=== PATIENT | female | born 1960 | race Caucasian/White ===

== ENCOUNTER 2018-08-20 16:57 | Emergency (ER) | payer OTHER ==
[~2018-08-20] VITALS: Ht 167.6 cm; Wt 74.8 kg
[2018-08-20 17:05] VITALS: BP 136/85
--- NOTE | 2018-08-20 17:05 | NUR ---
PATIENT BIB EMS TO ER BED 11.
--- NOTE | 2018-08-20 17:10 | NUR ---
PT FROM [facility] FOR HYPERGLYCEMIA, 449 ON TRIAGE. PT ALSO REPORTS ETOH AND SHARP CP FOR ONE HOUR. DENIES N/V/D; SKIN IS PINK/WARM/DRY; AAOX3 WITH EVEN AND STEADY GAIT; LUNGS CLEAR BL; HR EVEN AND REGULAR; PT DENIES ANY FEVER, SOB, OR COUGH AT THIS TIME; PATIENT STATES CHEST PAIN OF 8/10 AT THIS TIME; VSS; PATIENT POSITIONED FOR COMFORT; HOB ELEVATED; BEDRAILS UP X2; BED DOWN. ER MD MADE AWARE OF PT STATUS.
--- NOTE | 2018-08-20 17:41 | NUR ---
Dr. Aburto evaluating patient at bedside.
[2018-08-20 17:42] LABS: BASOPHILS % (AUTO) 0.6 % (0.0-2.0); EOSINOPHILS # (AUTO) 0.2 K/uL (0-0.4); EOSINOPHILS % (AUTO) 2.5 % (0.0-4.0); HEMATOCRIT 37.7 % (36-48); HEMOGLOBIN 12.6 g/dL (12.0-16.0); LYMPHOCYTES # (AUTO) 1.6 K/uL (2.5-16.5); LYMPHOCYTES % (AUTO) 24.3 % (20.5-51.1); MEAN CORPUSCULAR HEMOGLOBIN 30 pg (27-31); MEAN CORPUSCULAR HGB CONC 34 g/dL (33-37); MEAN CORPUSCULAR VOLUME 90.5 fL (80-94); MONOCYTES # (AUTO) 0.6 K/uL (0.8-1.0); MONOCYTES % (AUTO) 8.8 % (1.7-9.3); NEUTROPHILS # (AUTO) 4.2 K/uL (1.8-7.7); NEUTROPHILS % (AUTO) 63.8 % (42.2-75.2); PLATELET COUNT (AUTO) 166 K/uL (140-450); RED BLOOD CELL COUNT(AUTO) 4.17 MIL/uL (4.20-5.40); RED CELL DISTRIBUTION WIDTH 13.2 % (11.6-13.7); WHITE BLOOD COUNT (AUTO) 6.6 K/uL (4.8-10.8)
[2018-08-20 17:43] LABS: APPEARANCE,URINE CLEAR (CLEAR); BILIRUBIN,URINE NEGATIVE (NEGATIVE); BLOOD, URINE NEGATIVE (NEGATIVE); COLOR,URINE YELLOW (YELLOW); LEUKOCYTE ESTERASE ,URINE NEGATIVE (NEGATIVE); NITRITE, URINE POSITIVE (NEGATIVE); UGLUCOSE 3+ (NEGATIVE)
[2018-08-20 17:47] LABS: RBC,URINE 0 /HPF (0-5)
[2018-08-20] MEDS ORDERED: NACL 0.9% 1,500 ML IV SCH (17:51)
[2018-08-20 17:52] LABS: ANION GAP 10.1 (8-16); CARBON DIOXIDE 27.1 mmol/L (21-32); CREATININE 1.1 mg/dL (0.6-1.3); POTASSIUM 4.2 mmol/L (3.5-5.1)
[2018-08-20] MEDS ORDERED: INSULIN REGULAR, HUMAN 100 UNIT/ML VIAL IV ONE (17:55)
[2018-08-20] MEDS ORDERED: THIAMINE 200 MG/2 ML VIAL IM ONE (17:55)
[2018-08-20 17:57] LABS: ALBUMIN 3.8 g/dL (3.4-5.0); TOTAL BILIRUBIN 0.4 mg/dL (0.0-1.0)
[2018-08-20] MEDS ORDERED: ICOS1SGL PO (17:57)
[2018-08-20] MEDS ORDERED: METO25TA PO (17:57)
[2018-08-20] MEDS ORDERED: CLOP75TA55 PO (17:57)
[2018-08-20] MEDS ORDERED: ISOS30TE34 PO (17:57)
[2018-08-20] MEDS ORDERED: DETLA4 PO (17:57)
[2018-08-20] MEDS ORDERED: LISI-420 PO (17:57)
[2018-08-20] MEDS ORDERED: ASPI-1718 PO (17:57)
[2018-08-20] MEDS ORDERED: GABA300C PO (17:57)
[2018-08-20] MEDS ORDERED: INSU100S22 SUBQ (17:57)
[2018-08-20] MEDS ORDERED: RANEX500 PO (17:57)
[2018-08-20] MEDS ORDERED: HUM SUBQ (17:57)
[2018-08-20] MEDS ORDERED: TRI48 PO (17:57)
[2018-08-20] MEDS ORDERED: CETI10TA71 PO (17:57)
[2018-08-20] MEDS ORDERED: ATOR40TA PO (17:57)
[2018-08-20] MEDS ORDERED: MIRABULK PO (17:57)
--- NOTE | 2018-08-20 18:01 | NUR ---
agricultural technical officer at bedside.
--- NOTE | 2018-08-20 18:10 | NUR ---
PT BLOOD GLUCOSE IS 325. MADE AWARE.
[2018-08-20] MEDS ORDERED: INSULIN REGULAR, HUMAN 100 UNIT/ML VIAL IVP ONE (18:40)
[2018-08-20] MEDS ORDERED: LEVOFLOXACIN 500 MG TAB PO ONE (18:50)
--- NOTE | 2018-08-20 19:04 | NUR ---
Patient discharged with v/s stable. Written and verbal after care instructions given and explained. Patient alert, oriented and verbalized understanding of instructions. Ambulance Transport with to senior living. All questions addressed prior to discharge. ID band removed. Patient advised to follow up with PMD. Rx of levaquin given. Patient educated on indication of medication including possible reaction and side effects. Opportunity to ask questions provided and answered. ---online community manager working on arranging transport for pt to return home dc instructions given to pt
[2018-08-20 19:11] VITALS: BP 111/57
--- NOTE | 2018-08-20 19:33 | NUR ---
PT AWAITING AMBULANCE TRANSPORT TO FACILITY. INFORMED PT OF D/C PLAN. NO NEW QUESTIONS OR CONCERNS.
[2018-08-20 20:16] LABS: ACETONE, SERUM NEGATIVE (NEGATIVE)
[2018-08-20 20:20] LABS: MAGNESIUM 1.9 mg/dL (1.8-2.4)
--- NOTE | 2018-08-22 13:50 | NUR ---
positive e coli in urine-- reviewed chart pt received levaquin during ER visit. appropriate treatment given
== END 2018-08-20 19:35 | disposition home or self-care (01) ==
LOC: MED 16:57
DX: E11.65 Type 2 diabetes mellitus with hyperglycemia (principal); N39.0 Urinary tract infection, site not specified; E11.40 Type 2 diabetes mellitus with diabetic neuropathy, unspecified; Z86.73 Personal history of transient ischemic attack (TIA), and cerebral infarction without residual deficits; Z98.890 Other specified postprocedural states; Z79.84 Long term (current) use of oral hypoglycemic drugs; Z79.01 Long term (current) use of anticoagulants; Z79.4 Long term (current) use of insulin; Z79.899 Other long term (current) drug therapy; Z88.0 Allergy status to penicillin
CPT/HCPCS: 36415; 36600; 71045; 80053; 81001; 82009; 82803; 82948; 83036; 83605; 83735; 84484; 85025; 87086; 87186; 93005; 96361; 96372; 96374; 99284; J1815; J3411; J7030; Q0092

== ENCOUNTER 2018-08-26 03:23 | Emergency (ER) | payer OTHER, MEDICAID ==
[~2018-08-26] VITALS: Ht 170.2 cm; Wt 95.3 kg
[~2018-08-26 03:23] MED LIST: ASPI-1718 PO; ATOR40TA PO; CETI10TA71 PO; CLOP75TA55 PO; DETLA4 PO; GABA300C PO; HUM SUBQ; ICOS1SGL PO; INSU100S22 SUBQ; ISOS30TE34 PO; LISI-420 PO; METO25TA PO; MIRABULK PO; RANEX500 PO; TRI48 PO
--- NOTE | 2018-08-26 03:24 | NUR ---
PT NAI AMBULANCE FROM [facility], TAKEN TO ER BED 7
[2018-08-26 03:28] VITALS: BP 150/70
--- NOTE | 2018-08-26 03:30 | NUR ---
58 Y/O F ADELAIDAA, FROM [facility], WITH C/O HIGH BLOOD SUGAR AND BILATERAL TOE PAIN. 5/10 PAIN. PT AAOX4. SPEECH CLEAR. 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 SKIN NORMAL PER ETHINICITY, WARM AND DRY TO TOUCH. VSS. BEDRAILS X2 UP. HOB ELEVATED FOR COMFORT. WILL CONTINUE TO MONITOR. -BLOOD SUGAR 422. DR BECKFORD MADE AWARE.
[2018-08-26 03:36] VITALS: BP 150/70
[2018-08-26] MEDS ORDERED: NACL 0.9% 1,000 ML IV ONE (03:40)
--- NOTE | 2018-08-26 03:45 | NUR ---
DR. BECKFORD BEDSIDE EVALUATING PT
[2018-08-26 04:07] LABS: BASOPHILS # (AUTO) 0.1 K/uL (0.00-0.22); BASOPHILS % (AUTO) 1.5 % (0.0-2.0); EOSINOPHILS # (AUTO) 0.1 K/uL (0-0.4); EOSINOPHILS % (AUTO) 2.7 % (0.0-4.0); HEMATOCRIT 35.8 % (36-48); HEMOGLOBIN 12.3 g/dL (12.0-16.0); LYMPHOCYTES # (AUTO) 1.3 K/uL (2.5-16.5); LYMPHOCYTES % (AUTO) 27.9 % (20.5-51.1); MEAN CORPUSCULAR HEMOGLOBIN 31 pg (27-31); MEAN CORPUSCULAR HGB CONC 34 g/dL (33-37); MEAN CORPUSCULAR VOLUME 90.4 fL (80-94); MONOCYTES # (AUTO) 0.4 K/uL (0.8-1.0); MONOCYTES % (AUTO) 8.9 % (1.7-9.3); NEUTROPHILS # (AUTO) 2.8 K/uL (1.8-7.7); PLATELET COUNT (AUTO) 129 K/uL (140-450); RED BLOOD CELL COUNT(AUTO) 3.96 MIL/uL (4.20-5.40); RED CELL DISTRIBUTION WIDTH 13.2 % (11.6-13.7); WHITE BLOOD COUNT (AUTO) 4.8 K/uL (4.8-10.8)
[2018-08-26 04:18] LABS: ANION GAP 12.7 (8-16); CARBON DIOXIDE 27.3 mmol/L (21-32); CREATININE 1.1 mg/dL (0.6-1.3)
[2018-08-26] MEDS ORDERED: INSULIN REGULAR, HUMAN 100 UNIT/ML VIAL IV ONE (04:25)
--- NOTE | 2018-08-28 11:35 | NUR ---
Late entry. Confirmed with RN that 1000 ml 0.9 NS IV ended at 0455.
== END 2018-08-26 05:07 ==
LOC: MED 03:23
DX: E11.65 Type 2 diabetes mellitus with hyperglycemia (principal); M79.671 Pain in right foot; N39.0 Urinary tract infection, site not specified; E11.40 Type 2 diabetes mellitus with diabetic neuropathy, unspecified; Z79.4 Long term (current) use of insulin; Z86.73 Personal history of transient ischemic attack (TIA), and cerebral infarction without residual deficits; I10 Essential (primary) hypertension; Z79.82 Long term (current) use of aspirin; Z79.899 Other long term (current) drug therapy; Z88.0 Allergy status to penicillin
CPT/HCPCS: 36415; 80048; 81002; 82948; 85025; 96361; 96374; 99283; J1815; J7030

== ENCOUNTER 2018-08-30 07:00 | Inpatient (IN) | payer OTHER, MEDICAID ==
[~2018-08-30] VITALS: Ht 157.5 cm; Wt 91.6 kg
[2018-08-30 07:00] VITALS: BP 122/64
--- NOTE | 2018-08-30 07:20 | NUR ---
58/F NAI FROM [facility] FOR ELEVATED BLOOD GLUCOSE, OVER 600 THIS AM. WAS GIVEN INSULIN 45 MINS AGO. BLOOD GLUCOSE 496 AT THIS TIME. PT HAS HAD UTI X2 WEEKS. ALSO REPORTS RLE NEUROPATHY PAIN. MED HX: HTN, DM, RIDE SIDED STROKE (2019), CARDIAC STENTS, EYE SURGERY. PATIENT POSITIONED FOR COMFORT; HOB ELEVATED; BEDRAILS UP X2; BED DOWN. ER MD MADE AWARE OF PT STATUS.
--- NOTE | 2018-08-30 07:30 | NUR ---
SPOKE TO PT'S SON; [phone]
--- NOTE | 2018-08-30 07:31 | NUR ---
Patient being evaluated by DR ROMAN at bedside.
[2018-08-30] MEDS ORDERED: NACL 0.9% 1,000 ML IV ONE (07:40)
--- NOTE | 2018-08-30 07:51 | NUR ---
LAB AT BEDSIDE.
--- NOTE | 2018-08-30 07:52 | NUR ---
X RAY AT BEDSIDE.
[2018-08-30 08:07] LABS: BASOPHILS # (AUTO) 0.1 K/uL (0.00-0.22); BASOPHILS % (AUTO) 0.8 % (0.0-2.0); EOSINOPHILS # (AUTO) 0.1 K/uL (0-0.4); HEMOGLOBIN 13.6 g/dL (12.0-16.0); LYMPHOCYTES # (AUTO) 1.8 K/uL (2.5-16.5); LYMPHOCYTES % (AUTO) 27.6 % (20.5-51.1); MEAN CORPUSCULAR HEMOGLOBIN 31 pg (27-31); MEAN CORPUSCULAR HGB CONC 34 g/dL (33-37); MEAN CORPUSCULAR VOLUME 90.2 fL (80-94); MONOCYTES # (AUTO) 0.6 K/uL (0.8-1.0); MONOCYTES % (AUTO) 8.8 % (1.7-9.3); NEUTROPHILS # (AUTO) 3.9 K/uL (1.8-7.7); NEUTROPHILS % (AUTO) 60.8 % (42.2-75.2); PLATELET COUNT (AUTO) 165 K/uL (140-450); RED BLOOD CELL COUNT(AUTO) 4.44 MIL/uL (4.20-5.40); RED CELL DISTRIBUTION WIDTH 13.4 % (11.6-13.7); WHITE BLOOD COUNT (AUTO) 6.5 K/uL (4.8-10.8)
[2018-08-30 08:11] LABS: APPEARANCE,URINE CLEAR (CLEAR); BILIRUBIN,URINE NEGATIVE (NEGATIVE); BLOOD, URINE 2+ (NEGATIVE); COLOR,URINE YELLOW (YELLOW); LEUKOCYTE ESTERASE ,URINE NEGATIVE (NEGATIVE); NITRITE, URINE NEGATIVE (NEGATIVE); PH,URINE 5.5 (5.0-9.0); UGLUCOSE 3+ (NEGATIVE)
--- NOTE | 2018-08-30 08:30 | NUR ---
FOOD TRAY PROVIDED PATIENT AT THIS TIME.
--- NOTE | 2018-08-30 08:30 | NUR ---
Beka hannah in [facility] - 08/30/18 at 0834 by MED1 FOOD TRATariq PROVIDE PATIENT AT THIS TIME.
[2018-08-30 08:32] LABS: ALBUMIN 4.2 g/dL (3.4-5.0); ANION GAP 12.8 (8-16); ASPARTATE AMINOTRANSFERASE 18 U/L (15-37); CARBON DIOXIDE 26.1 mmol/L (21-32); CHLORIDE 99 mmol/L (98-107); CREATININE 1.1 mg/dL (0.6-1.3); GFR ARICAN-AMERICAN 66 mL/min (>90); POTASSIUM 3.9 mmol/L (3.5-5.1); SODIUM SERUM 134 mmol/L (136-145); TOTAL BILIRUBIN 0.7 mg/dL (0.0-1.0); UREA NITROGEN, BLOOD 26 mg/dL (7-18)
[2018-08-30 08:37] LABS: GLUCOSE 450 mg/dL (74-106)
--- NOTE | 2018-08-30 08:44 | NUR ---
ATE 100% OF FOOD .DENIES N/V.
[2018-08-30 08:49] LABS: ACETONE, SERUM NEGATIVE (NEGATIVE)
[2018-08-30] MEDS ORDERED: INSULIN REGULAR, HUMAN 100 UNIT/ML VIAL SUBQ ONE (09:00)
--- NOTE | 2018-08-30 09:30 | NUR ---
Patient appears to be resting comfortably in bed. Vital Signs within normal limits. Respirations even and unlabored.WILL CONTUNUE TO MONITOR.
[2018-08-30] MEDS ORDERED: ONDANSETRON 4 MG/2 ML VIAL IM/IVP PRN (09:50)
[2018-08-30] MEDS ORDERED: MORPHINE SULFATE 2 MG/ML SYR IVP PRN (09:50)
[2018-08-30] MEDS ORDERED: ACETAMINOPHEN 325 MG TAB PO PRN (09:50)
[2018-08-30] MEDS ORDERED: DOCUSATE SODIUM 100 MG GELCAP PO PRN (09:50)
[2018-08-30 10:10] LABS: WBC,URINE 0-5 /HPF (0-5); YEAST,URINE Rare /HPF (None Seen)
--- NOTE | 2018-08-30 10:27 | NUR ---
PT TAKEN TO CT VIA GUSTAN, ACCOMPANIED BY CODING CLERKS SUPERVISOR.
--- NOTE | 2018-08-30 10:27 | NUR ---
Beka hannah in ED - 08/30/18 at 1032 by MED1 PT BRYON TO CT VIA BENJI, ACCOMPANIED BY CLIPPER AND TURNER.
--- NOTE | 2018-08-30 10:32 | NUR ---
PT RETURNED FROM CT
[2018-08-30 11:30] LABS: PROTHROMBIN TIME 10.2 secs (10.8-13.4)
[2018-08-30] MEDS ORDERED: BLOOD GLUCOSE MONITORING 1 DEV DEV FS SCH (11:30)
[2018-08-30 11:36] LABS: CHOL/HDL RATIO 4.7 (1-4.5); PHOSPHORUS 3.6 mg/dL (2.5-4.9); THYROID STIMULATING HORMONE 10.64 uIU/mL (0.34-3.74)
--- NOTE | 2018-08-30 11:47 | NUR ---
US AT BEDSIDE
[2018-08-30] MEDS: BLOOD GLUCOSE MONITORING 1 DEV DEV FS SCH ×3 (12:00→23:52)
[2018-08-30] MEDS: INSULIN LISPRO SLIDING SCALE 100 UNITS/ML VIAL SUBQ PRN ×3 (12:27→23:57)
--- NOTE | 2018-08-30 12:45 | NUR ---
FOOD TRAY PROVIDE PATIENT AT THIS TIME.
--- NOTE | 2018-08-30 12:52 | NUR ---
ATE 100% OF FOOD .DENIES N/V.
--- NOTE | 2018-08-30 12:59 | NUR ---
Patient appears to be resting comfortably in bed. Vital Signs within normal limits. Respirations even and unlabored.
[2018-08-30] MEDS: NACL 0.9% 1,000 ML IV SCH ×3 (13:05→23:56)
[2018-08-30] MEDS: GABAPENTIN 300 MG CAP PO SCH ×2 (13:54→17:19)
[2018-08-30 14:37] VITALS: BP 144/73
--- NOTE | 2018-08-30 14:37 | NUR ---
RECEIVED REPORT REGARDING THE PT FROM CHARGE NURSE, TL, PT IS AWAKE AND ALERT AND HAS AN IV LINE ON THE LEFT HAND G. 22 ON SALINE LOCK, VITAL SIGNS TAKEN AND IS STABLE. PT DENIES PAIN AT THIS TIME AND WILL MONITOR PT.
--- NOTE | 2018-08-30 14:46 | NUR ---
Patient will be admitted to care of DR GARSIA. Admited to TELE. Will go to room 119B. Belongings list completed. Report to GEMA JC
[2018-08-30 15:10] LABS: BARBITURATE, URINE NEG. ng/ml (NEG <=200); BENZODIAZEPINE, URINE NEG. ng/mL (NEG <=200); CANNABINOID, URINE NEG. ng/mL (NEG <=50); COCAINE, URINE NEG. ng/mL (NEG <=300); OPIATE, URINE NEG. ng/mL (NEG <=2000); PHENCYCLIDINE SCREEN,URINE NEG. ng/mL (NEG <=25)
[2018-08-30] MEDS: HYDROcodone/APAP 5/325 MG 1 TAB TAB PO PRN (17:19)
--- NOTE | 2018-08-30 17:20 | NUR ---
PT IS AWAKE AND VERBALIZED A PAIN RATE OF 9/10, ORAL AND PAIN MEDICATION WERE GIVEN AND PT TOLERATED IT, WILL RE-ASSESS PAIN IN AN HOUR.
--- NOTE | 2018-08-30 18:44 | NUR ---
PT IS AWAKE AND BLOOD GLUCOSE CHECK DONE AND RSULT IS 407, INFORMED DR. SANTANA AND MADE A VERBAL ORDER TO GIVE 10UNITS OF INSULIN, INSULIN GIVEN ON THE RT UA VIA SUBQ ROUTE ANDS PT TOLERATED IT. WILL MONITOR PT.
--- NOTE | 2018-08-30 19:20 | NUR ---
RECEIVED BEDSIDE REPORT FROM DAY SHIFT NURSE. PATIENT IS AWAKE, ALERT, AND COOPERATIVE. RESPIRATION EVEN UNLABORED ON ROOM AIR. SKIN IS WARM AND DRY. IV PATENT AND INTACT. PLAN OF CARE WAS DISCUSSED. ALL SAFETY MEASURES IN PLACE. BED IS IN LOW POSITION. CALL LIGHT WITHIN REACH AND VERBALIZES ITS USE. WILL CONTINUE TO MONITOR.
--- NOTE | 2018-08-30 19:20 | NUR ---
ENDORSED PT TO CHEMICAL RESEARCH ENGINEER NURSE FOR CONTINUITY OF CARE.
[2018-08-30 20:00] VITALS: BP 131/67
--- NOTE | 2018-08-30 20:00 | NUR ---
INITIAL ASSESSMENT DONE. VITALS WERE TAKEN. PATIENT STATED THAT SHE HAS RIGHT SIDE BLINDNESS. ALL SAFETY MEASURES IN PLACE. WILL CONTINUE TO MONITOR.
[2018-08-30] MEDS: METOPROLOL 25 MG TAB PO SCH (20:27)
[2018-08-30] MEDS: ATORVASTATIN 20 MG TAB PO SCH (20:27)
--- NOTE | 2018-08-30 21:00 | NUR ---
ALL SCHEDULED MEDS WERE GIVEN AND TOLERATED THEM WELL. NO ASE NOTED. PATIENT COMPLAINED OF NAUSEA. PRN ANTIEMETIC ADMINISTERED PER ORDER. WILL CONTINUE TO MONITOR
--- NOTE | 2018-08-30 22:30 | NUR ---
PATIENT SLEEPING RESPIRATION EVEN UNLABORED ON ROOM AIR. NO DISTRESS NOTED. WILL CONTINUE TO MONITOR.
[2018-08-31] VITALS: BP 130/55
--- NOTE | 2018-08-31 | NUR ---
VITALS WERE TAKEN. PATIENT CONDITION STABLE. NO DISTRESS NOTED. WILL CONTINUE TO MONITOR.
[2018-08-31] MEDS: HYDROcodone/APAP 5/325 MG 1 TAB TAB PO PRN ×3 (00:15→20:24)
--- NOTE | 2018-08-31 00:15 | NUR ---
PATIENT COMPLAINED OF RIGHT ARM PAIN 6/10. PRN PAIN MED ADMINISTERED PER ORDER. WILL CONTINUE TO MONITOR.
--- NOTE | 2018-08-31 02:00 | NUR ---
CHECKED PATIENT. PATIENT SLEEPING RESPIRATION EVEN UNLABORED ON ROOM AIR. NO DISTRESS NOTED. WILL CONTINUE TO MONITOR.
[2018-08-31 04:00] VITALS: BP 136/65
--- NOTE | 2018-08-31 04:00 | NUR ---
VITALS WERE TAKEN. PATIENT CONDITION IS STABLE. NO DISTRESS NOTED. WILL CONTINUE TO MONITOR.
[2018-08-31] MEDS: INSULIN LISPRO SLIDING SCALE 100 UNITS/ML VIAL SUBQ PRN ×3 (06:01→17:30)
[2018-08-31] MEDS: BLOOD GLUCOSE MONITORING 1 DEV DEV FS SCH ×3 (06:04→17:29)
[2018-08-31 06:28] LABS: T4 (THYROXINE) 5.5 ug/dL (4.5-12.0)
--- NOTE | 2018-08-31 07:26 | NUR ---
ENDORSED PATIENT TO DAY SHIFT NURSE FOR CONTINUITY OF CARE. PATIENT IS IN STABLE CONDITION.
--- NOTE | 2018-08-31 07:27 | NUR ---
RECEIVED BEDSIDE REPORT FROM JORGE A DE PAZ. PT STABLE, AWAKE, ALERT AND ORIENTED X4. NO SIGNS OF DISTRESS NOTED. DENIES PAIN OR SOB. NO REDNESS, SWELLING, OR INFLAMMATION NOTED ON IV SITE. CALL [place] WITHIN REACH. BED IN LOWEST POSITION, PT AMBULATES TO THE BEDSIDE COMMODE. SAFETY MEASURES IN PLACE. PLAN OF CARE REVIEWED.
[2018-08-31 07:41] LABS: BASOPHILS % (AUTO) 0.3 % (0.0-2.0); EOSINOPHILS # (AUTO) 0.3 K/uL (0-0.4); EOSINOPHILS % (AUTO) 4.9 % (0.0-4.0); HEMOGLOBIN 12.3 g/dL (12.0-16.0); LYMPHOCYTES % (AUTO) 32.3 % (20.5-51.1); MEAN CORPUSCULAR HEMOGLOBIN 31 pg (27-31); MEAN CORPUSCULAR HGB CONC 34 g/dL (33-37); MEAN CORPUSCULAR VOLUME 90.3 fL (80-94); MONOCYTES # (AUTO) 0.5 K/uL (0.8-1.0); MONOCYTES % (AUTO) 7.9 % (1.7-9.3); NEUTROPHILS # (AUTO) 3.3 K/uL (1.8-7.7); NEUTROPHILS % (AUTO) 54.6 % (42.2-75.2); PLATELET COUNT (AUTO) 140 K/uL (140-450); RED BLOOD CELL COUNT(AUTO) 3.98 MIL/uL (4.20-5.40); RED CELL DISTRIBUTION WIDTH 13.3 % (11.6-13.7); WHITE BLOOD COUNT (AUTO) 6.1 K/uL (4.8-10.8)
[2018-08-31 08:00] VITALS: BP 135/90
--- NOTE | 2018-08-31 08:03 | NUR ---
PATIENT HAS BEEN SCREENED AND CATEGORIZED MODERATE NUTRITION RISK. PATIENT WILL BE SEEN WITHIN 3-5 DAYS OF ADMISSION. 09/02/18N[address]
--- NOTE | 2018-08-31 08:15 | NUR ---
PT IS REQUESTING FOR CREAM OF WHEAT INSTEAD OF OATMEAL AND SOME EXTRA CREAMER, CALLED [facility].
[2018-08-31] MEDS ORDERED: INSULIN LANTUS 100 UNITS/ML 10 ML VIAL SUBQ SCH (09:00)
[2018-08-31 09:19] LABS: ANION GAP 14.1 (8-16); CARBON DIOXIDE 25.1 mmol/L (21-32); CREATININE 0.8 mg/dL (0.6-1.3); POTASSIUM 4.2 mmol/L (3.5-5.1)
[2018-08-31] MEDS: TOLTERODINE LA 4 MG CAPER PO SCH (10:26)
[2018-08-31] MEDS: FENOFIBRATE 48 MG TAB PO SCH (10:27)
[2018-08-31] MEDS: LACTOBACILLUS RHAMNOSUS GG 1 EACH CAP PO SCH (10:27)
[2018-08-31] MEDS: METOPROLOL 25 MG TAB PO SCH ×2 (10:27→20:24)
[2018-08-31] MEDS: LISINOPRIL 20 MG TAB PO SCH (10:28)
[2018-08-31] MEDS: ESCITALOPRAM 20 MG TAB PO SCH (10:28)
[2018-08-31] MEDS: ASPIRIN 81 MG TAB.CHEW PO SCH (10:28)
[2018-08-31] MEDS: CLOPIDOGREL 75 MG TAB PO SCH (10:28)
[2018-08-31] MEDS: GABAPENTIN 300 MG CAP PO SCH ×3 (10:29→17:28)
[2018-08-31] MEDS: INSULIN LANTUS 100 UNITS/ML 10 ML VIAL SUBQ SCH (10:35)
[2018-08-31] MEDS: ISOSORBIDE MONONITRATE 30 MG TABER PO SCH (10:38)
--- NOTE | 2018-08-31 10:46 | NUR ---
ADMINISTERED SCHEDULED MEDICATIONS, PT TOLERATED WELL. CHECKED BG, 408, ADMINISTERED SCHEDULED LANTUS. WILL CONTINUE TO MONITOR.
[2018-08-31 11:19] LABS: MAGNESIUM 1.7 mg/dL (1.8-2.4); PHOSPHORUS 3.3 mg/dL (2.5-4.9)
[2018-08-31 12:00] VITALS: BP 131/72
--- NOTE | 2018-08-31 12:30 | NUR ---
VITAL SIGNS TAKEN, PT STABLE. NO OTHER NEEDS AT THIS TIME.
[2018-08-31] MEDS: NACL 0.9% 1,000 ML IV SCH (12:52)
--- NOTE | 2018-08-31 13:11 | NUR ---
ADMINISTERED SCHEDULED MEDICATION, PT TOLERATED WELL. ADMINISTERED 10 UNITS HUMALOG FOR BG 371. PT PULLED OUT IV, REINSERTED NEW IV ON RIGHT FA 22 G. ASYMPTOMATIC, INTACT, AND PATENT. WILL CONTINUE TO MONITOR. Addendum: 08/31/18 at 1318 by Daisy Ceron RN ADMINISTERED TETE DOWNING FOR 8/10 RIGHT LEG PAIN. Addendum: 08/31/18 at 1920 by Daisy Ceron RN CATHETER TIP WAS INTACT AFTER PT PULLED OUT IV, BLEEDING CONTROLLED.
--- NOTE | 2018-08-31 14:15 | NUR ---
PT SHOWERED, PT AMBULATED WITH ASSISTANCE.
[2018-08-31] MEDS ORDERED: MAGNESIUM OXIDE 400 MG TAB PO SCH (14:30)
--- NOTE | 2018-08-31 15:31 | NUR ---
ADMINISTERED SCHEDULED MEDICATION, PT TOLERATED WELL. NO OTHER NEEDS AT THIS TIME.
[2018-08-31 16:00] VITALS: BP 105/58
--- NOTE | 2018-08-31 16:05 | NUR ---
VITAL SIGNS TAKEN, PT STABLE. NO OTHER NEEDS AT THIS TIME.
[2018-08-31] MEDS: metFORMIN 500 MG TAB PO SCH (17:28)
--- NOTE | 2018-08-31 17:33 | NUR ---
ADMINISTERED SCHEDULED MEDICATIONS. BG CHECKED, 274, ADMINISTERED 6 UNITS HUMALOG. PT TOLERATED WELL. NO OTHER NEEDS AT THIS TIME.
--- NOTE | 2018-08-31 19:15 | NUR ---
RECIEVED PT AAOX4 ,NOT IN RESPIRATORY DISTRESS ,IV SITE INTACT AND PATENT V/S STABLE ,PLAN OF CARE DISCUSSED AND VERBALIZE UNDERSTANDING ,ON FALL RISK PRECAUTION ,BED IN LOW POSITION ,SIDERAILS UP X2 CALL LIGHT WITHIN REACH ,WILL CONTINUE TO MONITOR.
--- NOTE | 2018-08-31 19:15 | NUR ---
ENDORSED PT TO JORGE A BANGURA FOR CONTINUITY OF CARE. PT STABLE.
[2018-08-31 20:00] VITALS: BP 111/64
[2018-08-31] MEDS: ATORVASTATIN 20 MG TAB PO SCH (20:23)
--- NOTE | 2018-08-31 20:24 | NUR ---
COMPLAINING OF PAIN .PAIN ASSESSMENT DONE . NARCO P.O GIVEN ORDERED . WILL CONTINUE TO MONITOR ,CALL LIGHT WITHIN REACH
--- NOTE | 2018-08-31 21:40 | NUR ---
MADE ROUNDS , PT . SAID THE PAIN IS NOW BEARABLE. CALL LIGHT WITH IN REACH.
[2018-08-31] MEDS ORDERED: ZOLPIDEM 5 MG TAB PO PRN (22:10)
--- NOTE | 2018-08-31 22:15 | NUR ---
COMPLAINING OF UNABLE TO SLEEP , REFERRED TO ROD. GOMES P.Manjinder GIVEN ORDERED. NOT IN RESPIRATORY DISTRESS ,CALL LIGHT IS WITHIN REACH , WILL CONT. TO MONITOR
[2018-09-01] VITALS: BP 135/76
--- NOTE | 2018-09-01 | NUR ---
V/S TAKEN HGT = 248 MG/DL , HUMALOG 4 U GIVEN SQ ORDERED ,WILL CONTINUE TO MONITOR.
[2018-09-01] MEDS: BLOOD GLUCOSE MONITORING 1 DEV DEV FS SCH ×3 (00:47→12:07)
[2018-09-01] MEDS: INSULIN LISPRO SLIDING SCALE 100 UNITS/ML VIAL SUBQ PRN ×3 (01:15→12:00)
[2018-09-01] MEDS: NACL 0.9% 1,000 ML IV SCH (01:26)
--- NOTE | 2018-09-01 02:00 | NUR ---
PT. SLEEPING RR 20CPM
--- NOTE | 2018-09-01 04:00 | NUR ---
MADE ROUNDS PT RESTING ON BED V/S TAKEN , CALL LIGHT WITHIN REACH NO FURTHER COMPLAIN AT THIS TIME.
[2018-09-01 04:06] VITALS: BP 133/77
--- NOTE | 2018-09-01 07:20 | NUR ---
IV SITE SWOLLEN , PT COMPLAINING SITE ,IV SITE CHECKED NO BACKFLOW N. IV CANNULA REMOVED, WILL CONTINUE TO MONITOR
--- NOTE | 2018-09-01 07:28 | NUR ---
RECEIVED BEDSIDE REPORT FROM JORGE A BANGURA. PT STABLE, AWAKE, ALERT AND ORIENTED X4. NO SIGNS OF DISTRESS NOTED. DENIES PAIN OR SOB. NO IV ACCESS, PM RN D/C IV DUE TO IV SITE IS SWOLLEN. CALL [place]OENIX WITHIN REACH. BED IN LOWEST POSITION, PT AMBULATES TO THE BATHROOM. SAFETY MEASURES IN PLACE. PLAN OF CARE REVIEWED.
--- NOTE | 2018-09-01 07:28 | NUR ---
ENDORSED TO AM SHIFT NURSE FOR CONTINUITY OF CARE , FOR IV RE INSERTION, CALL LIGHT WITHIN REACH.
--- NOTE | 2018-09-01 07:28 | NUR ---
ENDORSED TO AM SHIFT FOR CONTINUITY OF CARE. IV SITE SWOLLEN IV -OUT FOR RE INSERTION OF IV CANULLA,
[2018-09-01 07:57] LABS: BASOPHILS % (AUTO) 0.5 % (0.0-2.0); EOSINOPHILS # (AUTO) 0.3 K/uL (0-0.4); HEMATOCRIT 37.5 % (36-48); HEMOGLOBIN 13.1 g/dL (12.0-16.0); LYMPHOCYTES # (AUTO) 1.4 K/uL (2.5-16.5); LYMPHOCYTES % (AUTO) 26.7 % (20.5-51.1); MEAN CORPUSCULAR HEMOGLOBIN 31 pg (27-31); MEAN CORPUSCULAR HGB CONC 35 g/dL (33-37); MEAN CORPUSCULAR VOLUME 89.4 fL (80-94); MONOCYTES # (AUTO) 0.5 K/uL (0.8-1.0); MONOCYTES % (AUTO) 9.1 % (1.7-9.3); NEUTROPHILS % (AUTO) 58.7 % (42.2-75.2); PLATELET COUNT (AUTO) 154 K/uL (140-450); RED BLOOD CELL COUNT(AUTO) 4.19 MIL/uL (4.20-5.40); RED CELL DISTRIBUTION WIDTH 13.3 % (11.6-13.7); WHITE BLOOD COUNT (AUTO) 5.1 K/uL (4.8-10.8)
[2018-09-01 08:00] VITALS: BP 125/73
[2018-09-01 08:40] LABS: MAGNESIUM 1.9 mg/dL (1.8-2.4); PHOSPHORUS 3.3 mg/dL (2.5-4.9)
[2018-09-01 08:42] LABS: ANION GAP 13.8 (8-16); CARBON DIOXIDE 25.5 mmol/L (21-32); CREATININE 0.8 mg/dL (0.6-1.3); POTASSIUM 4.3 mmol/L (3.5-5.1)
[2018-09-01] MEDS: FENOFIBRATE 48 MG TAB PO SCH (08:46)
[2018-09-01] MEDS: TOLTERODINE LA 4 MG CAPER PO SCH (08:46)
[2018-09-01] MEDS: LACTOBACILLUS RHAMNOSUS GG 1 EACH CAP PO SCH (08:46)
[2018-09-01] MEDS: GABAPENTIN 300 MG CAP PO SCH (08:46)
[2018-09-01] MEDS: ESCITALOPRAM 20 MG TAB PO SCH (08:47)
[2018-09-01] MEDS: ASPIRIN 81 MG TAB.CHEW PO SCH (08:47)
[2018-09-01] MEDS: metFORMIN 500 MG TAB PO SCH (08:47)
[2018-09-01] MEDS: METOPROLOL 25 MG TAB PO SCH (08:48)
[2018-09-01] MEDS: LISINOPRIL 20 MG TAB PO SCH (08:48)
[2018-09-01] MEDS: ISOSORBIDE MONONITRATE 30 MG TABER PO SCH (08:49)
[2018-09-01] MEDS: CLOPIDOGREL 75 MG TAB PO SCH (08:49)
[2018-09-01] MEDS: INSULIN LANTUS 100 UNITS/ML 10 ML VIAL SUBQ SCH (08:52)
--- NOTE | 2018-09-01 08:57 | NUR ---
ADMINISTERED SCHEDULED MEDICATIONS, PT TOLERATED WELL. Addendum: 09/01/18 at 0859 by Daisy Ceron RN BLOOD GLUCOSE CHECKED, 320, ADMINISTERED SCHEDULED LANTUS 60 UNITS.
[2018-09-01] MEDS ORDERED: INSU100S22 SUBQ (09:14)
[2018-09-01] MEDS ORDERED: METF500T PO (09:14)
--- NOTE | 2018-09-01 09:18 | NUR ---
INSERTED IV ON RIGHT FA 22G. PT TOLERATED WELL. IV SITE IS PATENT, ASYMPTOMATIC, AND INTACT.
[2018-09-01] MEDS ORDERED: INSULIN NPH HUM/REG INSULIN HM 100 UNIT/ML 10 ML VIAL SUBQ SCH (10:56)
--- NOTE | 2018-09-01 11:00 | NUR ---
HELD SCHEDULED NPH INSULIN PER DR DELAROSA'S ORDER. PER DR DELAROSA, ADMINISTER HUMALOG FIRST DEPENDING ON 1200 BLOOD GLUCOSE LEVEL, THEN RECHECK BLOOD SUGAR 30 MINUTES AFTER.
--- NOTE | 2018-09-01 12:04 | NUR ---
BLOOD GLUCOSE CHECKED, 302, ADMINISTERED 8 UNITS HUMALOG PER MD ORDER.
--- NOTE | 2018-09-01 12:35 | NUR ---
RECHECKED BLOOD SUGAR, 292. MADE DR DELAROSA AWARE. PER DR DELAROSA, DO NOT ADMINISTER NPH INSULIN. WILL CONTINUE TO MONITOR PT.
--- NOTE | 2018-09-01 12:50 | NUR ---
D/C INSTRUCTIONS AND PAPERWORK GIVEN. PT VERBALIZED UNDERSTANDING. PER DR DELAROSA, PRESCRIPTION HAS BEEN SENT TO [facility], WHICH IS THE PHARMACY THAT VIVIENNEAIR WEAVER GETS THEIR MEDICATIONS FROM. QUESTIONS AND CONCERNS OF PT WERE ADDRESSED. D/C IV, CATHETER TIP INTACT, BLEEDING CONTROLLED. SKIN INTACT, PT RECEIVED PNEUMONIA VACCINE IN 2018. PT TOOK ALL BELONGINGS HOME. ESCORTED PT TO THE LOBBY AND PICKED UP BY [employer] RAIMANN MACHINE OPERATOR TONEY. Addendum: 09/01/18 at 1411 by Daisy Ceron RN PT IS STABLE, NO SIGNS OF DISTRESS NOTED.
[2018-09-01] MEDS ORDERED: ESCI10TA PO (13:06)
== END 2018-09-01 12:50 | disposition home or self-care (01) | DRG 74 ==
LOC: MED 07:00 → MTU 09:49
PROVIDERS: ADMIT General Practice; ATTEND General Practice
DX: G90.8 Other disorders of autonomic nervous system (principal); D68.59 Other primary thrombophilia; N39.0 Urinary tract infection, site not specified; I69.351 Hemiplegia and hemiparesis following cerebral infarction affecting right dominant side; E11.65 Type 2 diabetes mellitus with hyperglycemia; E11.40 Type 2 diabetes mellitus with diabetic neuropathy, unspecified; E11.69 Type 2 diabetes mellitus with other specified complication; F32.9 Major depressive disorder, single episode, unspecified; E86.0 Dehydration; I10 Essential (primary) hypertension; B96.20 Unspecified Escherichia coli [E. coli] as the cause of diseases classified elsewhere; I25.10 Atherosclerotic heart disease of native coronary artery without angina pectoris; E02 Subclinical iodine-deficiency hypothyroidism; Z88.0 Allergy status to penicillin; Z79.82 Long term (current) use of aspirin; Z79.899 Other long term (current) drug therapy; Z95.5 Presence of coronary angioplasty implant and graft; Z95.1 Presence of aortocoronary bypass graft; Z83.3 Family history of diabetes mellitus; Z82.49 Family history of ischemic heart disease and other diseases of the circulatory system
CPT/HCPCS: 36415; 70450; 71045; 76770; 80048; 80053; 80305; 81001; 82009; 82140; 82150; 82948; 83036; 83605; 83690; 83735; 83880; 84100; 84436; 84443; 84484; 85025; 85610; 85730; 87040; 87045; 87081; 87086; 89055; 93005; 93880; 96361; 96365; 96372; 99285; J0696; J0713; J1815; J2405; J7030; J7060; Q0092

== ENCOUNTER 2018-11-15 09:37 | Emergency (ER) | payer OTHER, MEDICAID ==
[~2018-11-15] VITALS: Ht 157.5 cm; Wt 81.6 kg
[~2018-11-15 09:37] MED LIST changes: +ESCI10TA PO; +METF500T PO
[2018-11-15 09:40] VITALS: BP 100/50
--- NOTE | 2018-11-15 09:40 | NUR ---
PATIENT BIB EMS TO BED 7 AT THIS TIME.
--- NOTE | 2018-11-15 10:05 | NUR ---
NAI FROM [facility] C/O LEFT EYE REDNESS X TODAY. NO REDNESS NOTED UPON EXAMINATION. PATIENT STATES VISION IS BLURRY. PER EMS HER BLOOD SUGAR 267. AMBULATED WITH CANE. AA0X4. BED IS DOWN, LOCKED, BED RAIL X 1, ERMD TO SEE PT. MED HX: DM, STROKE , EAR SURGERY, HEART SURGERY & 2 STENTS.
--- NOTE | 2018-11-15 10:06 | NUR ---
PT DENIES PAIN, N/V/D, HEADACHE.
--- NOTE | 2018-11-15 10:07 | NUR ---
DR NORTON AT BEDSIDE
--- NOTE | 2018-11-15 10:33 | NUR ---
[facility]
--- NOTE | 2018-11-15 10:53 | NUR ---
PT GIVEN OPHTHALMIST NUMBER TO CALL FOR APPT
[2018-11-15] MEDS ORDERED: CLOP75TA55 PO (10:55)
[2018-11-15] MEDS ORDERED: NYST100022 PO (10:55)
[2018-11-15] MEDS ORDERED: ICOS0.5C PO (10:55)
[2018-11-15] MEDS ORDERED: NITR0.4T2 SL (10:55)
[2018-11-15] MEDS ORDERED: ECON1CRE TP (10:55)
--- NOTE | 2018-11-15 11:40 | NUR ---
CALLED [facility], GAVE REPORT, ASKED FOR TRANSFER TEAM. ETA IS 2-3 HOURS. FACILITY WILL CALL AND CONFIRM
--- NOTE | 2018-11-15 11:50 | NUR ---
CALLED SON JADYN, STATES HE WILL COME TO GUEST RELATIONS COORDINATOR MOTHER BUT STATES HE IS DRIVING FROMLA, WILL BE HERE LUIS DID NOT GIVE AN ETA
[2018-11-15 11:53] VITALS: BP 104/55
--- NOTE | 2018-11-15 11:53 | NUR ---
Patient discharged with v/s stable. Written and verbal after care instructions given and explained TO PATIENT AND SON. Patient verbalized understanding. Wheel Chair Assisted with to car. All questions addressed prior to discharge. Advised to follow up with OPHTHALMIST TODAY
--- NOTE | 2018-11-15 11:53 | NUR ---
SON ON ON WAY TO FOUNTAIN CLERK PT
--- NOTE | 2018-11-15 12:47 | NUR ---
SON WILL STRIP CATCHER PT IN ER LOBBY. PT AMB W/O ASST TO ER LOBBY. PT AAOX4 AT THIS TIME
== END 2018-11-15 11:53 | disposition home or self-care (01) ==
LOC: MED 09:37
DX: H53.8 Other visual disturbances (principal); Z88.0 Allergy status to penicillin; Z79.899 Other long term (current) drug therapy; E11.9 Type 2 diabetes mellitus without complications; I10 Essential (primary) hypertension
CPT/HCPCS: 70450; 99285

== ENCOUNTER 2018-12-13 16:45 | Emergency (ER) | payer OTHER, MEDICAID ==
[~2018-12-13] VITALS: Ht 157.5 cm; Wt 81.6 kg
[~2018-12-13 16:45] MED LIST changes: -CETI10TA71 PO; -DETLA4 PO; +ECON30CR2 TP; -ESCI10TA PO; +ICOS0.5C PO; -ICOS1SGL PO; -MIRABULK PO; +NITR0.4T2 SL; +NYST100022 PO; -RANEX500 PO
[2018-12-13 16:48] VITALS: BP 165/82
[2018-12-13 17:50] VITALS: BP 165/82
== END 2018-12-13 18:16 | disposition home or self-care (01) ==
LOC: MED 16:45
DX: F41.9 Anxiety disorder, unspecified (principal); M79.652 Pain in left thigh; I10 Essential (primary) hypertension; E11.9 Type 2 diabetes mellitus without complications; I20.9 Angina pectoris, unspecified; Z79.84 Long term (current) use of oral hypoglycemic drugs; Z79.82 Long term (current) use of aspirin; Z79.4 Long term (current) use of insulin; Z88.0 Allergy status to penicillin; Z86.73 Personal history of transient ischemic attack (TIA), and cerebral infarction without residual deficits; Z98.890 Other specified postprocedural states
CPT/HCPCS: 99283

== ENCOUNTER 2019-09-06 09:26 | Emergency (ER) | payer OTHER, MEDICAID ==
[~2019-09-06] VITALS: Ht 157.5 cm; Wt 89.8 kg
[~2019-09-06 09:26] MED LIST changes: -ASPI-1718 PO; +ASPI-1822 PO; +ECON1CRE TP; -ECON30CR2 TP
--- NOTE | 2019-09-06 09:26 | NUR ---
Patient BIBA BLS, transferred to bed 12. RN evaluating patient at bedside.
[2019-09-06 09:32] VITALS: BP 122/58
[2019-09-06] MEDS ORDERED: GABA400C PO (09:33)
--- NOTE | 2019-09-06 09:40 | NUR ---
NAI FROM [facility] W C/O HEAVY VAGINAL BLEEDING AND ABD CRAMPING X1 WEEK. PER PT, SHE WAS HAVING CLOTS THE SIZE OF HER FIST OF YESTERDAY. THE BLEEDING HAS SLOWED DOWN/STOPPED OF TODAY PER PT. DENIES DIZZINESS, HR EVEN AND REGULAR 88 BPM, BP WITHIN NORMAL RANGE, CAP REFIL <2 SECONDS. PT STATES SHE WANTS TO SEE A MAINTENANCE WELDER AND BE TESTED FOR UTERINE CANCER TODAY. PT ALSO REPORTS THAT SHE TAKES 2-3 ANTICOAGULANT MEDICATIONS FOR PRIOR CVA, ONE OF WHICH IS PLAVIX, THE OTHER NAMES UNK. PT PROVIDED WITH GOWN AND PLACED ON BEDSIDE METAL POURER AT THIS TIME.
[2019-09-06] MEDS ORDERED: NYST1POW16 TP (09:43)
[2019-09-06] MEDS ORDERED: TRAZ-343 PO (09:43)
[2019-09-06] MEDS ORDERED: CYAN100T65 PO (09:43)
[2019-09-06] MEDS ORDERED: OMEP20EC11 PO (09:43)
[2019-09-06] MEDS ORDERED: ACET-9882 PO (09:43)
[2019-09-06] MEDS ORDERED: MELA5TAB6 PO (09:43)
[2019-09-06] MEDS ORDERED: DULA0.75 SUBQ (09:43)
[2019-09-06] MEDS ORDERED: LIDO1ADH47 TP (09:44)
--- NOTE | 2019-09-06 09:52 | NUR ---
dr. ramirez at bedside
--- NOTE | 2019-09-06 10:17 | NUR ---
PELVIC EXAM SET UP AT [facility], DR ROMAN MADE AWARE
[2019-09-06 10:20] LABS: BASOPHILS # (AUTO) 0.1 K/uL (0.00-0.22); BASOPHILS % (AUTO) 1.3 % (0.0-2.0); EOSINOPHILS # (AUTO) 0.2 K/uL (0-0.4); EOSINOPHILS % (AUTO) 3.2 % (0.0-4.0); HEMATOCRIT 37.2 % (36-48); HEMOGLOBIN 12.7 g/dL (12.0-16.0); LYMPHOCYTES # (AUTO) 1.4 K/uL (2.5-16.5); LYMPHOCYTES % (AUTO) 24.7 % (20.5-51.1); MEAN CORPUSCULAR HEMOGLOBIN 31 pg (27-31); MEAN CORPUSCULAR HGB CONC 34 g/dL (33-37); MEAN CORPUSCULAR VOLUME 91.6 fL (80-94); MONOCYTES # (AUTO) 0.5 K/uL (0.8-1.0); MONOCYTES % (AUTO) 8.6 % (1.7-9.3); NEUTROPHILS # (AUTO) 3.5 K/uL (1.8-7.7); NEUTROPHILS % (AUTO) 62.2 % (42.2-75.2); PLATELET COUNT (AUTO) 145 K/uL (140-450); RED BLOOD CELL COUNT(AUTO) 4.06 MIL/uL (4.20-5.40); RED CELL DISTRIBUTION WIDTH 12.7 % (11.6-13.7); WHITE BLOOD COUNT (AUTO) 5.6 K/uL (4.8-10.8)
--- NOTE | 2019-09-06 10:25 | NUR ---
Accompanied Dr. Hodges for patient for pelvic exam for female patient. No specimens collected, Pt tolerated procedure well.
[2019-09-06 10:40] LABS: PROTHROMBIN TIME 10.8 secs (10.8-13.4)
--- NOTE | 2019-09-06 10:46 | NUR ---
US tech at bedside.
--- NOTE | 2019-09-06 10:47 | NUR ---
PT NOT HOMELESS, HOMELESS ASSESSMENT NOT DONE
[2019-09-06 10:50] LABS: ALBUMIN 3.8 g/dL (3.4-5.0); ANION GAP 14.8 (8-16); CARBON DIOXIDE 27.5 mmol/L (21-32); CREATININE 0.9 mg/dL (0.6-1.3); POTASSIUM 4.3 mmol/L (3.5-5.1); THYROID STIMULATING HORMONE 4.48 uIU/mL (0.34-3.74); TOTAL BILIRUBIN 0.7 mg/dL (0.0-1.0)
[2019-09-06] MEDS ORDERED: KETOROLAC 60 MG/2 ML VIAL IM ONE (10:55)
[2019-09-06] MEDS ORDERED: INSULIN REGULAR, HUMAN 100 UNIT/ML VIAL SUBQ ONE (11:25)
--- NOTE | 2019-09-06 13:11 | NUR ---
Ary Kim called and told to call back in 30 mins when bellman driver returns from lunch break.
--- NOTE | 2019-09-06 13:24 | NUR ---
Patient resting comfortably in bed, looking at her cell phone; reading. Pt advised we are waiting to get in contact with Ary Kim to set up transportation for her back to her facility.
[2019-09-06 13:30] VITALS: BP 101/47
--- NOTE | 2019-09-06 13:30 | NUR ---
Patient discharged with v/s stable. Written and verbal after care instructions given and explained. Patient verbalized understanding. Copy of labs and US provided for follow up. Ambulatory with use of walker and steady gait. All questions addressed prior to discharge. Advised to follow up with PMD. Pt assisted to car in parking lot.
== END 2019-09-06 13:30 ==
LOC: MED 09:26
DX: N95.0 Postmenopausal bleeding (principal); N88.8 Other specified noninflammatory disorders of cervix uteri; E07.9 Disorder of thyroid, unspecified; E11.65 Type 2 diabetes mellitus with hyperglycemia; I10 Essential (primary) hypertension; Z88.0 Allergy status to penicillin; Z79.899 Other long term (current) drug therapy; Z79.84 Long term (current) use of oral hypoglycemic drugs; Z79.4 Long term (current) use of insulin; Z86.79 Personal history of other diseases of the circulatory system
CPT/HCPCS: 36415; 76830; 80053; 81002; 83036; 84443; 85025; 85610; 85730; 93976; 96372; 99284; J1815; J1885; Q0092

== ENCOUNTER 2020-01-13 09:09 | Inpatient (IN) | payer OTHER, MEDICAID ==
[~2020-01-13] VITALS: Ht 167.6 cm; Wt 89.8 kg
[~2020-01-13 09:09] MED LIST changes: +ACET-9882 PO; +DULA0.75 SUBQ; -ECON1CRE TP; -GABA300C PO; +GABA400C PO; -ICOS0.5C PO; +LIDO1ADH47 TP; +MELA5TAB6 PO; -NYST100022 PO; +NYST1POW16 TP; +OMEP20EC11 PO; +TRAZ-343 PO; +VITB12 PO
[2020-01-13 09:16] VITALS: BP 120/61
--- NOTE | 2020-01-13 09:18 | NUR ---
60/F ADELAID[place]artha FROM [facility]. PT REQUESTING TO BE TESTED FOR COVID AND ALSO RECEIVE TX FOR CHEST CONGESTION/DISCOMFORT. ROOMMATE TESTED POSITIVE FOR COVID, PT STATES LAST CONTACT WITH ROOMMATE WAS ABOUT 1 WEEK AGO. PT WAS TESTED 2 DAYS AGO BUT STILL PENDING RESULTS. PT REPORTS COUGH X 1 WEEK, SOB/CHEST DISCOMFORT CONGESTION X TODAY AM, DIARRHEA X 2-3 DAYS. SPEAKING IN FULL CLEAR SENTENCES. AMBULATORY FROM EMS GURNEY TO BED 09. APPEARS NAD. AFEBRILE, VSS, CONNECTED TO BEDSIDE MONITOR. HX- CVA, DM, Addendum: 01/13/20 at 1036 by TEVIN HX HTN
--- NOTE | 2020-01-13 09:58 | NUR ---
COVID PCR, COVID MARISEL, RSV, FLU SWABS COLLECTED AND HANDED TO LAB.
--- NOTE | 2020-01-13 09:58 | NUR ---
DR. BECKER EVALUATING PT AT BEDSIDE
--- NOTE | 2020-01-13 10:02 | NUR ---
SURVEY RESEARCHER AT BEDSIDE
--- NOTE | 2020-01-13 10:03 | NUR ---
COVID PCR, COVID MARISEL, FLU, AND RSV SWABS COLLECTED AND SENT TO LAB
[2020-01-13 10:22] LABS: BASOPHILS % (AUTO) 0.3 % (0.0-2.0); EOSINOPHILS % (AUTO) 0.1 % (0.0-4.0); HEMATOCRIT 37.4 % (36-48); HEMOGLOBIN 12.7 g/dL (12.0-16.0); LYMPHOCYTES % (AUTO) 16.2 % (20.5-51.1); MEAN CORPUSCULAR HEMOGLOBIN 29 pg (27-31); MEAN CORPUSCULAR HGB CONC 34 g/dL (33-37); MEAN CORPUSCULAR VOLUME 85.2 fL (80-94); MONOCYTES # (AUTO) 0.7 K/uL (0.8-1.0); MONOCYTES % (AUTO) 11.1 % (1.7-9.3); NEUTROPHILS # (AUTO) 4.4 K/uL (1.8-7.7); NEUTROPHILS % (AUTO) 72.3 % (42.2-75.2); PLATELET COUNT (AUTO) 109 K/uL (140-450); RED BLOOD CELL COUNT(AUTO) 4.39 MIL/uL (4.20-5.40); RED CELL DISTRIBUTION WIDTH 14.9 % (11.6-13.7); WHITE BLOOD COUNT (AUTO) 6.1 K/uL (4.8-10.8)
[2020-01-13 10:27] LABS: PROTHROMBIN TIME 10.8 secs (10.8-13.4)
[2020-01-13 10:29] LABS: ALBUMIN 3.9 g/dL (3.4-5.0); ANION GAP 18.1 (8-16); CREATININE 1.3 mg/dL (0.6-1.3); POTASSIUM 4.1 mmol/L (3.5-5.1)
[2020-01-13 10:48] LABS: BILIRUBIN,URINE 2+ (NEGATIVE); BLOOD, URINE NEGATIVE (NEGATIVE); COLOR,URINE YELLOW (YELLOW); PH,URINE 5.5 (5.0-9.0); UGLUCOSE NEGATIVE (NEGATIVE)
[2020-01-13 10:50] LABS: LACTATE DEHYDROGENASE 240 U/L (81-234)
[2020-01-13 11:04] LABS: APPEARANCE,URINE HAZY (CLEAR)
[2020-01-13] MEDS ORDERED: DEXAMETHASONE 10 MG/ML VIAL IVP ONE (11:05)
[2020-01-13] MEDS ORDERED: AZITHROMYCIN 1,000 MG in DEXTROSE 5% 500 ML IV ONE (11:05)
[2020-01-13 11:06] LABS: RBC,URINE 0-5 /HPF (0-5)
--- NOTE | 2020-01-13 11:06 | NUR ---
CALLED ADMITTING TO ADMIT BED 09
--- NOTE | 2020-01-13 11:06 | NUR ---
TEXTED DIVISION HUMAN RESOURCES MANAGER FOR ADMISSION
[2020-01-13 11:07] LABS: LEUKOCYTE ESTERASE ,URINE 1+ (NEGATIVE)
[2020-01-13 11:08] LABS: NITRITE, URINE POSITIVE (NEGATIVE)
[2020-01-13] MEDS ORDERED: DOCUSATE SODIUM 100 MG GELCAP PO PRN (11:10)
[2020-01-13] MEDS: NACL 0.9% 1,000 ML IV SCH ×2 (11:10→21:10)
[2020-01-13] MEDS ORDERED: MORPHINE SULFATE 2 MG/ML SYR IVP PRN (11:10)
[2020-01-13] MEDS ORDERED: HYDROcodone/APAP 5/325 MG 1 TAB TAB PO PRN (11:10)
[2020-01-13] MEDS ORDERED: ONDANSETRON 4 MG/2 ML VIAL IVP PRN (11:10)
[2020-01-13] MEDS ORDERED: ACETAMINOPHEN 325 MG TAB PO PRN (11:10)
[2020-01-13] MEDS ORDERED: AZITHROMYCIN 500 MG INJ VIAL IV ONE (11:13)
[2020-01-13 11:26] LABS: C-REACTIVE PROTEIN QUANT 7.2 mg/dL (0.0-0.9)
[2020-01-13 11:36] LABS: RSV NEGATIVE (NEGATIVE)
[2020-01-13 12:30] VITALS: BP 109/67
--- NOTE | 2020-01-13 12:30 | NUR ---
RECEIVED REPORT FROM ER NURSE FOR CONTINUITY OF CARE, PT IS STABLE, PT ON 2L OXYGEN VIA NASAL CANNULA, PT HAS LEFT FA 22G INFUSING ANTIBIOTICS AT 250 ML/H, SKIN INTACT, INTRODUCE PT TO THE ROOM, OBTAIN MRSA SWAB, BED IN LOW POSITION, SAFETY MEASURES IN PLACE, CALL LIGHT WITHIN REACH, WILL CONTINUE TO MONITOR.
--- NOTE | 2020-01-13 12:30 | NUR ---
Patient will be admitted to care of DR. LADD. Admited to TELE. Will go to room 115. Belongings list completed. Report to GREY JULES.
[2020-01-13 12:55] LABS: CHOL/HDL RATIO 2.7 (1-4.5); FREE T4 (FREE THYROXINE) 1.19 ng/dL (0.76-1.46); MAGNESIUM 1.4 mg/dL (1.8-2.4); PHOSPHORUS 3.5 mg/dL (2.5-4.9); THYROID STIMULATING HORMONE 5.18 uIU/mL (0.34-3.74)
[2020-01-13] MEDS ORDERED: DEXTROSE 50% 50 ML SYR IVP PRN (13:40)
[2020-01-13] MEDS ORDERED: ALBUTEROL HFA MDI 90 MCG/ACTUATION 8 GM INH PRN (13:40)
--- NOTE | 2020-01-13 13:54 | NUR ---
ADMINISTERED SCHEDULED MEDICATION, MEDICATION EDUCATION PROVIDED, PT VERBALIZED UNDERSTANDING, PT TOLERATED WELL, PT IS STABLE, CALL LIGHT WITHIN REACH, WILL CONTINUE TO MONITOR.
--- NOTE | 2020-01-13 15:20 | NUR ---
IV ALARMING, FIXED IV, PT HELPED OUT OF BED TO USE THE RESTROOM, PT IS STABLE, WILL CONTINUE TO MONITOR.
[2020-01-13 16:00] VITALS: BP 135/61
--- NOTE | 2020-01-13 16:04 | NUR ---
NOTIFIED DR LADD PT HAD NO CODE STATUS AND MAGNESIUM 1.4, RECEIVED TORB FOR FULL CODE AND MAG OX 800 MG PO TAB ONCE, WILL INPUT ORDER AND CARRY IT OUT.
[2020-01-13] MEDS ORDERED: MAGNESIUM OXIDE 400 MG TAB PO ONE (16:05)
--- NOTE | 2020-01-13 16:49 | NUR ---
ADMINISTERED SCHEDULED MEDICATION, MEDICATION EDUCATION PROVIDED, PT VERBALIZED UNDERSTANDING, PT TOLERATED WELL, PT IS STABLE, CALL LIGHT WITHIN REACH, WILL CONTINUE TO MONITOR.
[2020-01-13] MEDS: INSULIN LISPRO SLIDING SCALE 100 UNITS/ML VIAL SUBQ PRN ×2 (17:16→22:01)
[2020-01-13] MEDS: BLOOD GLUCOSE MONITORING 1 DEV DEV FS SCH ×2 (17:20→20:41)
--- NOTE | 2020-01-13 17:20 | NUR ---
ADMINISTERED 4 UNITS OF HUMALOG FOR BLOOD GLUCOSE OF 247, MEDICATION EDUCATION PROVIDED, PT VERBALIZED UNDERSTANDING, PT TOLERATED WELL, PT IS STABLE, CALL LIGHT WITHIN REACH, WILL CONTINUE TO MONITOR.
--- NOTE | 2020-01-13 17:52 | NUR ---
ADMINISTERED SCHEDULED MEDICATION, MEDICATION EDUCATION PROVIDED, PT VERBALIZED UNDERSTANDING, PT TOLERATED WELL, PT IS STABLE, CALL LIGHT WITHIN REACH, WILL CONTINUE TO MONITOR.
--- NOTE | 2020-01-13 19:05 | NUR ---
ENDORSE PT TO NIGHT NURSE FOR CONTINUITY OF CARE, PT IS STABLE
[2020-01-13 20:00] VITALS: BP 124/69
--- NOTE | 2020-01-13 20:00 | NUR ---
RECEIVED PATIENT AWAKE IN BED. PT ON 3L NC, NO SOB AT THIS TIME. PT WITH INTERMITTENT COUGH. PT DENIES ANY PAIN OR DISCOMFORT AT THIS TIME. PT ON TELE MONITORING. BED LOWERED WITH CALL LIGHT WITHIN REACH.
[2020-01-13] MEDS: ZOLPIDEM 5 MG TAB PO PRN (20:30)
[2020-01-13] MEDS: ZINC SULF 220 MG CAP PO SCH (20:30)
--- NOTE | 2020-01-13 20:30 | NUR ---
ADMINISTERED SCHEDULED MEDS. PT TOLERATED WELL
[2020-01-14] VITALS: BP 139/63
[2020-01-14] MEDS: LORazepam 2 MG/ML VIAL IM/IVP PRN (00:47)
--- NOTE | 2020-01-14 02:13 | NUR ---
PT ASLEEP IN BED. NO S/S OF DISTRESS NOTED
[2020-01-14 04:18] VITALS: BP 159/74
[2020-01-14] MEDS: NACL 0.9% 1,000 ML IV SCH ×2 (04:20→18:20)
[2020-01-14] MEDS: BLOOD GLUCOSE MONITORING 1 DEV DEV FS SCH ×4 (06:33→20:45)
[2020-01-14 06:39] LABS: BASOPHILS % (AUTO) 0.1 % (0.0-2.0); HEMATOCRIT 39.5 % (36-48); HEMOGLOBIN 13.8 g/dL (12.0-16.0); LYMPHOCYTES # (AUTO) 0.8 K/uL (2.5-16.5); LYMPHOCYTES % (AUTO) 14.5 % (20.5-51.1); MEAN CORPUSCULAR HEMOGLOBIN 29 pg (27-31); MEAN CORPUSCULAR HGB CONC 35 g/dL (33-37); MEAN CORPUSCULAR VOLUME 83.9 fL (80-94); MONOCYTES # (AUTO) 0.5 K/uL (0.8-1.0); MONOCYTES % (AUTO) 8.5 % (1.7-9.3); NEUTROPHILS # (AUTO) 4.2 K/uL (1.8-7.7); NEUTROPHILS % (AUTO) 76.9 % (42.2-75.2); PLATELET COUNT (AUTO) 138 K/uL (140-450); RED CELL DISTRIBUTION WIDTH 15.1 % (11.6-13.7); WHITE BLOOD COUNT (AUTO) 5.5 K/uL (4.8-10.8)
[2020-01-14] MEDS: INSULIN LISPRO SLIDING SCALE 100 UNITS/ML VIAL SUBQ PRN ×3 (06:41→20:52)
[2020-01-14 06:58] LABS: ALBUMIN 3.6 g/dL (3.4-5.0); ANION GAP 19.1 (8-16); CARBON DIOXIDE 19.3 mmol/L (21-32); CREATININE 0.8 mg/dL (0.6-1.3); POTASSIUM 4.4 mmol/L (3.5-5.1); TOTAL BILIRUBIN 0.6 mg/dL (0.0-1.0)
[2020-01-14 07:18] LABS: MAGNESIUM 1.5 mg/dL (1.8-2.4); PHOSPHORUS 2.4 mg/dL (2.5-4.9)
--- NOTE | 2020-01-14 07:29 | NUR ---
PT ENDORSED TO AM NURSE. PT ENDORSED IN STABLE CONDITION
--- NOTE | 2020-01-14 07:30 | NUR ---
RECEIVED REPORT FROM ARGON TESTER NURSE ADA FOR CONTINUITY OF CARE. PATIENT IN STABLE CONDITION. RESPIRATIONS EVEN AND UNLABORED, O2 2L VIA NC. IV INTACT AND PATENT. SAFETY MEASURES IN PLACE. BED IN LOW POSITION. CALL LIGHT WITHIN REACH. WILL CONTINUE TO MONITOR.
[2020-01-14 08:00] VITALS: BP 144/83
[2020-01-14] MEDS: ASCORBIC ACID 500 MG TAB PO SCH (09:03)
[2020-01-14] MEDS: AZITHROMYCIN 250 MG TAB PO SCH (09:04)
[2020-01-14] MEDS: ZINC SULF 220 MG CAP PO SCH ×2 (09:04→20:41)
[2020-01-14] MEDS: VITAMIN D 400 IU TAB PO SCH (09:04)
--- NOTE | 2020-01-14 09:04 | NUR ---
GAVE ORDERED DUE MEDICATIONS AT THIS TIME. PATIENT TOLERATED WELL. BED IN LOW POSITION. CALL LIGHT WITHIN REACH. WILL CONTINUE TO MONITOR.
--- NOTE | 2020-01-14 09:06 | NUR ---
PATIENT HAS BEEN SCREENED AND CATEGORIZED MODERATE NUTRITION RISK. PATIENT WILL BE SEEN WITHIN 3-5 DAYS OF ADMISSION. 01/15/20 01/17/[address]
[2020-01-14] MEDS: ENOXAPARIN 40 MG/0.4 ML SYR SUBQ SCH (09:28)
--- NOTE | 2020-01-14 11:04 | NUR ---
PAULINO BOAT RIGGER: PATIENT IS FROM [facility] AND IS COVID POSITIVE. PATIENT CAN NOT GO BACK TO [facility] AT THIS TIME. FAXED PATIENTS CLINICALS TO [facility]. WILL FOLLOW UP Addendum: 01/14/20 at 1130 by Lisa Santacruz CM PAULINO SCHUMACHERNER: SPOKE TO PATIENTS JADYN KHANNA [phone] ABOUT DISCHARGING PATIENT TO SNF. HE UNDERSTOOD THAT HIS MOTHER COULD NOT GO BACK TO [facility] AT THIS TIME. I LET HIM KNOW WHICH SNFS ARE CONTRACTED WITH HIS MOTHERS INSURANCE AND ACCEPTING COVID PATIENTS. HIS PREFERENCE IS [facility]. REACHED OUT TO [facility] AND SPOKE TO SONIA IN ADMISSIONS [phone]. THEY ARE STILL ACCEPTING COVID PATIENTS WILL FAX THE PATIENTS CLINICALS. FAX # [phone] Addendum: 01/14/20 at 1204 by Lisa Santacruz CM PAULINO HO: PAULINO HO: RECEIVED A CALL BACK FROM SONIA AT [facility]. THEY ARE ABLE TO ACCEPT THIS PATIENT ROOM 111 A Addendum: 01/14/20 at 1235 by Lisa Santacruz CM PAULINO HO: DR. PYLE MADE AWARE THAT PATIENT HAS BEEN ACCEPTED AT [facility]. Addendum: 01/14/20 at 1502 by Lisa Santacruz CM PAULINO HO: SPOKE TO SHANNEN CHAVES AT [facility] SHE IS AWARE THAT [facility] IS ABLE TO ACCEPT THIS PATIENT. SHE WILL PROVIDE US WITH TRANSPORTATION AUTH ONCE PATIENT IS READY FOR DISCHARGE. Addendum: 01/16/20 at 1104 by Lisa Santacruz CM DC BOAT RIGGER: SPOKE TO ANASTACIO FROM [facility] SHE PROVIDED AUTH FOR SNF AND TRANSPORTATION. AUTH #[id number] Addendum: 01/16/20 at 1323 by Lisa Santacruz CM DC BOAT RIGGER: PATIENT WILL BE DISCHARGING TODAY TO [facility]. SPOKE TO SAH AT [facility] TO NOTIFY HER WHERE PATIENT WILL BE DISCHARGING TO. SPOKE TO PATIENTS SON AND DISCUSSED RIGHTS OF MEDICARE. IM LETTER DOCUMENTED. NOTIFIED JORGE A MANCUSO THAT PATIENT IS DISCHARGING TO [facility] AND TRANSPORTATION WILL BE HERE WITHIN 30 MINS. [facility]SP[facility] FOR TODAY. SONIA FROM [facility] IS ABLE TO SEND THEIR LOGGER.
--- NOTE | 2020-01-14 11:14 | NUR ---
RECEIVED REPORT FROM INTERNATIONAL SALES MANAGER NURSE FOR CONTINUITY OF CARE. PATIENT IN STABLE CONDITION. RESPIRATIONS EVEN AND UNLABORED, O2 2L VIA NC. IV INTACT AND PATENT. SAFETY MEASURES IN PLACE. BED IN LOW POSITION. CALL LIGHT WITHIN REACH. WILL CONTINUE TO MONITOR. Addendum: 01/14/20 at 1121 by Love Cole RN [id number] REPORT
--- NOTE | 2020-01-14 11:15 | NUR ---
CALLED MAINTENANCE TO UNCLOG PATIENT TOILET. EXPLAINED TO PATIENT THE PROPER PAPER TO BE FLUSHED DOWN THE TOILET. PATIENT VERBALIZED UNDERSTANDING.
[2020-01-14 12:00] VITALS: BP 126/68
--- NOTE | 2020-01-14 13:44 | NUR ---
GAVE PATIENT TISSUE AND TEA AT THIS TIME. BED IN LOW POSITION. CALL LIGHT WITHIN REACH. WILL CONTINUE TO MONITOR.
--- NOTE | 2020-01-14 14:14 | NUR ---
SOCIAL WORK NOTE: Information Provided By JADYN YEN - SON Comments SW WAS UNABLE TO MEET PATIENT AT BEDSIDE DUE TO MEDICAL CONDITION. SW CONTACTED PATIENT'S SON JADYN TO COMPLETE ASSESSMENT. Stucco Worker, Realtionship and Phone Number JADYN YEN SON [phone] Healthcare Power of Pathology Laboratory Aides Teacher No Does Patient Have a POLST No Identifying Problems No Social Work Triggers Is A Social Work Consult Needed No Mandate Report Filed No Explanation Of Identifying Problems PATIENT IS A 60-YEAR-OLD MALE ADMITTED FOR COVID AND PNEUMONIA. PATIENT HAS PMHX OF CVA, DM, AND DIABETIC NEUROPATHY. PER SON, PATIENT HAS NO HISTORY OF SUBSTANCE ABUSE OR MENTAL HEALTH. PATIENT WAS ADMITTED FROM [facility]. Admitted From Assisted Living/Resident Pre-Admission Level Of Functioning Status Independent With DME Prior Resources/Services Used In Last 12 Months No Prior Resources Used Prior DME Walker Dialysis Comments SON REPORTED NO DIALYSIS. Living Situation Asst'd Living/Board &Care Patient Had Caregiver No Home Support No Caregiver Issues Financial Issues No Known Financial Issue Referral To The Financial Counselor Needed No Factors/Needs Assist Living/B & C [facility] Explanation And Or Other Factors Affecting/Possible DC Needs PATIENT'S SON STATED THAT HE WOULD PREFER PATIENT RETURN TO [facility]. Pt/Rep Participated In Discharge Plan Yes Patient/Family Agress With Discharge Plan Yes Discharge Plan Comments TENTATIVE DISCHARGE PLAN IS FOR PATIENT TO RETURN TO [facility]. DC Plan Status Initiated
[2020-01-14 16:00] VITALS: BP 148/80
--- NOTE | 2020-01-14 16:05 | NUR ---
CLAIRE PYLE, SHERON OGDEN OX 400MG PO ONCE.
[2020-01-14] MEDS ORDERED: MAGNESIUM OXIDE 400 MG TAB PO SCH (16:15)
--- NOTE | 2020-01-14 19:15 | NUR ---
GAVE REPORT TO BLEACH ANALYST NURSE DIOGO FOR CONTINUITY OF CARE. PATIENT IN STABLE CONDITION.
--- NOTE | 2020-01-14 19:16 | NUR ---
RECEIVED REPORT FROM DAY SHIFT NURSE. PT IN BED RESTING WITH HOB SLIGHTLY ELEVATED. PT AAOX4, AMBULATORY, AND ABLE TO MAKE NEEDS KNOWN. RESPIRATIONS EVEN AND UNLABORED TO O2 2LPM/NC. DROPLET PRECAUTIONS OBSERVED AT ALL TIMES. ABDOMEN IS SOFT AND NON-TENDER. SKIN IS WARM, DRY, AND INTACT. IV ACCESS ON LEFT FOREARM AND RIGHT HAND G22 PATENT AND INTACT. IVF INFUSING WELL. PT DENIES ANY PAIN OR DISCOMFORT AT THIS TIME. NO REQUESTS MADE. SAFETY MEASURES IN PLACE. CALL LIGHT WITHIN REACH. WILL CONTINUE TO MONITOR.
[2020-01-14 20:00] VITALS: BP 153/70
--- NOTE | 2020-01-14 20:45 | NUR ---
VITAL SIGNS STABLE. SCHEDULED MEDICATION GIVEN ORDERED. BLOOD SUGAR 341. INSULIN COVERAGE GIVEN ORDERED. PT NOT IN DISTRESS, DENIES ANY PAIN OR DISCOMFORT. NO COMPLAINS MADE. PT KEPT COMFORTABLE. SAFETY MEASURES IN PLACE. CALL LIGHT WITHIN REACH. WILL CONTINUE TO MONITOR.
--- NOTE | 2020-01-14 22:06 | NUR ---
ROUNDS MADE. PT IN BED WATCHING TV. PT DENIES PAIN OR DISCOMFORT. NO REQUESTS MADE. O2 IN PLACE. PT NOT IN DISTRESS. SAFETY MEASURES IN PLACE. CALL LIGHT WITHIN REACH. WILL CONTINUE TO MONITOR.
[2020-01-14] MEDS: ZOLPIDEM 5 MG TAB PO PRN (23:43)
--- NOTE | 2020-01-14 23:43 | NUR ---
PT VERBALIZED HAVING DIFFICULTY FALLING ASLEEP AND REQUESTING FOR MEDICATION. PRN AMBIEN GIVEN ORDERED. VITAL SIGNS TAKEN, STABLE. WILL CONTINUE TO MONITOR.
[2020-01-15] VITALS: BP 146/83
--- NOTE | 2020-01-15 02:07 | NUR ---
ROUNDS MADE. PT ASLEEP. VISIBLE CHEST RISE AND FALL NOTED. PT NOT IN DISTRESS. O2 IN PLACE. NO S/SX OF PAIN OR DISCOMFORT. PT KEPT COMFORTABLE. SAFETY MEASURES IN PLACE. CALL LIGHT WITHIN REACH. WILL CONTINUE TO MONITOR.
[2020-01-15] MEDS: NACL 0.9% 1,000 ML IV SCH ×3 (03:10→22:05)
[2020-01-15 04:00] VITALS: BP 160/85
--- NOTE | 2020-01-15 04:07 | NUR ---
VITAL SIGNS STABLE. PT IN BED RESTING. O2 IN PLACE. O2 SAT 93%. PT DENIES ANY PAIN OR DISCOMFORT AT THIS TIME. NO REQUESTS MADE. PT KEPT COMFORTABLE. SAFETY MEASURES IN PLACE. CALL LIGHT WITHIN REACH. WILL CONTINUE TO MONITOR.
[2020-01-15 06:28] LABS: BASOPHILS % (AUTO) 0.1 % (0.0-2.0); HEMATOCRIT 37.3 % (36-48); HEMOGLOBIN 12.7 g/dL (12.0-16.0); LYMPHOCYTES % (AUTO) 14.1 % (20.5-51.1); MEAN CORPUSCULAR HEMOGLOBIN 29 pg (27-31); MEAN CORPUSCULAR HGB CONC 34 g/dL (33-37); MONOCYTES # (AUTO) 0.6 K/uL (0.8-1.0); MONOCYTES % (AUTO) 8.7 % (1.7-9.3); NEUTROPHILS # (AUTO) 5.2 K/uL (1.8-7.7); NEUTROPHILS % (AUTO) 77.1 % (42.2-75.2); PLATELET COUNT (AUTO) 148 K/uL (140-450); RED BLOOD CELL COUNT(AUTO) 4.44 MIL/uL (4.20-5.40); RED CELL DISTRIBUTION WIDTH 14.9 % (11.6-13.7); WHITE BLOOD COUNT (AUTO) 6.8 K/uL (4.8-10.8)
[2020-01-15 06:39] LABS: ANION GAP 16.2 (8-16); CREATININE 0.7 mg/dL (0.6-1.3); POTASSIUM 4.2 mmol/L (3.5-5.1)
[2020-01-15 06:49] LABS: MAGNESIUM 1.4 mg/dL (1.8-2.4); PHOSPHORUS 1.7 mg/dL (2.5-4.9)
[2020-01-15] MEDS: BLOOD GLUCOSE MONITORING 1 DEV DEV FS SCH ×4 (06:53→20:46)
[2020-01-15] MEDS: INSULIN LISPRO SLIDING SCALE 100 UNITS/ML VIAL SUBQ PRN ×4 (06:54→20:53)
--- NOTE | 2020-01-15 07:19 | NUR ---
ENDORSED TO DAY SHIFT NURSE FOR CONTINUITY OF CARE.
--- NOTE | 2020-01-15 07:20 | NUR ---
RECEIVED PATIENT FROM NIGHT NURSE. PATIENT SITTING UP IN BED C/O SOB, UPON DEEP INHALATION. RT WAS CALLED AND BREATHING TREATMENT WAS GIVEN. PATIENT TOLERATED WELL AND FEELING BETTER, O2SAT 95%. PATIENT DENIES OF PAIN AT THIS TIME. LFA 22G SL, RH 22G INFUSING NS 100ML/HR. PLAN OF CARE DISCUSSED WITH PATIENT. PATIENT VERBALIZED UNDERSTANDING. CALL LIGHT WITHIN REACH. WILL CONTINUE TO MONITOR.
[2020-01-15 08:00] VITALS: BP 129/71
[2020-01-15] MEDS: ENOXAPARIN 40 MG/0.4 ML SYR SUBQ SCH (09:03)
[2020-01-15] MEDS: ZINC SULF 220 MG CAP PO SCH ×2 (09:08→20:44)
[2020-01-15] MEDS: ASCORBIC ACID 500 MG TAB PO SCH (09:08)
[2020-01-15] MEDS: AZITHROMYCIN 250 MG TAB PO SCH (09:08)
[2020-01-15] MEDS: VITAMIN D 400 IU TAB PO SCH (09:08)
--- NOTE | 2020-01-15 09:25 | NUR ---
MORNING ROUTINE MEDICATIONS GIVEN. PATIENT TOLERATED WELL. PATIENT AWAKE ALERT AND ORIENTED X4. RESP EVEN AND UNLABORED ON 4L NC, O2SAT 96%. PATIENT DENIES OF SOB OR PAIN AT THIS TIME. LUNGS CLEAR ANTERIOR LOBES. BOWEL SOUNDS PRESENT. SKIN IS WARM TO TOUCH AND INTACT. RH 22G INTACT AND PATENT INFUSING NS 100ML/HR. LFA 22G INTACT AND PATENT, SL. PLAN OF CARE DISCUSSED WITH PATIENT. PATIENT VERBALIZED UNDERSTANDING. PATIENT IS IN GOOD SPIRIT. ENCOURAGED TURN DEEP BREATHE AND COUGH. PATIENT NODDED UNDERSTANDING. PATIENT IS AMBULATORY WITH STEADY GAIT. CALL LIGHT WITHIN REACH. WILL CONTINUE TO MONITOR.
[2020-01-15 12:00] VITALS: BP 155/82
[2020-01-15] MEDS ORDERED: MAG SULF 2000 MG/WATER PREMIX 50 ML IV SCH (12:00)
--- NOTE | 2020-01-15 13:15 | NUR ---
BLOOD GLUCOSE 240. INSULIN GIVEN PER SLIDING SCALE. PATIENT IS ALERT AND AWAKE. VERY PLEASANT. ABLE TO MAKE NEEDS KNOWN. DENIES OF PAIN AT THIS TIME. PT AMBULATING TO THE BATHROOM WITH STEADY GAIT. RESP EVEN AND UNLABORED ON 4LNC. SAFETY MEASURES IN PLACE. WILL CONTINUE TO MONITOR.
[2020-01-15] MEDS: LORazepam 2 MG/ML VIAL IM/IVP PRN (14:42)
--- NOTE | 2020-01-15 15:20 | NUR ---
PATIENT RESTING IN BED. DENIES PAIN OR DISTRESS AT THIS TIME. RESP EVEN AND UNLABORED ON 3L NC. PATIENT AMBULATING TO THE BATHROOM WITH STEADY GAIT. ABLE TO MAKE NEEDS KNOWN. SAFETY MEASURES IN PLACE. WILL CONTINUE TO MONITOR.
[2020-01-15 16:00] VITALS: BP 137/71
--- NOTE | 2020-01-15 17:35 | NUR ---
BLOOD GLUCOSE 260. INSULIN GIVEN PER SLIDING SCALE. DENIES OF PAIN AT THIS TIME. PATIENT ON THE PHONE WITH HER FAMILY. ABLE TO MAKE NEEDS KNOWN. SAFETY MEASURES IN PLACE. WILL CONTINUE TO MONITOR.
--- NOTE | 2020-01-15 19:32 | NUR ---
ENDORSED PATIENT TO NIGHT NURSE. PATIENT IN STABLE CONDITION.
--- NOTE | 2020-01-15 19:33 | NUR ---
RECEIVED ENDORSEMENT FROM AM SHIFT RN. PATIENT IS ON 3L NASAL CANNULA, O2 SAT WNL, NO DISTRESS, WITH LFA 22 G, INFUSING IVF, WITH RH 22, SALINE LOCK, INTACT, DROPLET PRECAUTION OBSERVED, SAFETY MEASURES IN PLACE, PLAN OF CARE DISCUSSED, CALL LIGHT WITHIN REACH, WILL MONITOR.
[2020-01-15 20:00] VITALS: BP 144/65
--- NOTE | 2020-01-15 20:55 | NUR ---
PATIENT IS AWAKE, NO SOB, ADMINISTERED DUE MEDS ORDERED, TOLERATED WELL. RT CAME INTO THE ROOM WELL AND CHECK THE PATIENT. CALL LIGHT WITHIN REACH.
--- NOTE | 2020-01-15 20:57 | NUR ---
RECEIVED REPORT FROM AM SHIFT. PT IS SEEN AND ASSESSED. PT IS FOUND ON 3L NC WITH SPO2 OF 94%. AUSCULTATION REVEALS RALES BREATH SOUNDS. PT DID NOT C/O SOB AND NO APPARENT RESPIRATORY DISTRESS NOTED AT THIS TIME. PRN TX NOT INDICATED AT THIS MOMENT. PT WAS INFORMED TO CALL RN OR MARKETING SUPPORT COORDINATOR FOR PRN TX WHEN EXPERIENCING SHORTNESS OF BREATH. WILL CONTINUE TO MONITOR PT.
[2020-01-15] MEDS: ZOLPIDEM 5 MG TAB PO PRN (22:04)
--- NOTE | 2020-01-15 22:09 | NUR ---
AMBIEN PO GIVEN PRN PER PATIENT REQUESTED TO HELP HER SLEEP. TOLERATED WELL.
--- NOTE | 2020-01-15 23:58 | NUR ---
V/S TAKEN AND RECORDED, REPOSITIONED, KEPT WARM AND COMFORTABLE, CALL LIGHT WITHIN REACH.
[2020-01-16] VITALS: BP 152/65
--- NOTE | 2020-01-16 02:45 | NUR ---
PATIENT IS ASLEEP, NO SOB, RESPIRATION EVEN AND UNLABORED.
[2020-01-16 04:00] VITALS: BP 137/58
[2020-01-16 06:08] LABS: BASOPHILS % (AUTO) 0.1 % (0.0-2.0); EOSINOPHILS % (AUTO) 0.1 % (0.0-4.0); HEMATOCRIT 35.4 % (36-48); HEMOGLOBIN 12.3 g/dL (12.0-16.0); LYMPHOCYTES # (AUTO) 1.1 K/uL (2.5-16.5); LYMPHOCYTES % (AUTO) 23.5 % (20.5-51.1); MEAN CORPUSCULAR HEMOGLOBIN 29 pg (27-31); MEAN CORPUSCULAR HGB CONC 35 g/dL (33-37); MEAN CORPUSCULAR VOLUME 84.2 fL (80-94); MONOCYTES # (AUTO) 0.5 K/uL (0.8-1.0); MONOCYTES % (AUTO) 9.5 % (1.7-9.3); NEUTROPHILS # (AUTO) 3.2 K/uL (1.8-7.7); NEUTROPHILS % (AUTO) 66.8 % (42.2-75.2); PLATELET COUNT (AUTO) 138 K/uL (140-450); RED BLOOD CELL COUNT(AUTO) 4.21 MIL/uL (4.20-5.40); RED CELL DISTRIBUTION WIDTH 14.9 % (11.6-13.7); WHITE BLOOD COUNT (AUTO) 4.8 K/uL (4.8-10.8)
[2020-01-16 06:20] LABS: ANION GAP 15.3 (8-16); CARBON DIOXIDE 21.8 mmol/L (21-32); CREATININE 0.7 mg/dL (0.6-1.3); POTASSIUM 4.1 mmol/L (3.5-5.1)
[2020-01-16 06:23] LABS: MAGNESIUM 1.6 mg/dL (1.8-2.4); PHOSPHORUS 1.7 mg/dL (2.5-4.9)
[2020-01-16] MEDS: BLOOD GLUCOSE MONITORING 1 DEV DEV FS SCH ×2 (06:43→11:29)
[2020-01-16] MEDS: INSULIN LISPRO SLIDING SCALE 100 UNITS/ML VIAL SUBQ PRN ×2 (06:44→11:56)
--- NOTE | 2020-01-16 06:45 | NUR ---
BLOOD SUGAR 174, HUMALOG 2 UNITS SQ GIVEN PER SLIDING SCALE, NO DISTRESS, NO SOB, CALL LIGHT WITHIN REACH.
--- NOTE | 2020-01-16 07:10 | NUR ---
PATIENT IS IN STABLE CONDITION, ENDORSEMENT GIVEN TO AM SHIFT RN FOR CONTINUITY OF CARE.
--- NOTE | 2020-01-16 07:11 | NUR ---
RECEIVED REPORT FROM DELIVERY STOCK CLERK RN FOR CONTINUITY OF CARE. PT APPEARS STABLE, LAYING IN BED, RECEIVING O2 SUPPLEMENT IN NO DISTRESS. SAFETY MEASURES REMAIN IN PLACE. WILL CONTINUE WITH POC.
[2020-01-16 08:00] VITALS: BP 136/69
[2020-01-16] MEDS: VITAMIN D 400 IU TAB PO SCH (08:30)
--- NOTE | 2020-01-16 08:30 | NUR ---
PT IS AWAKE, ALERT ORIENTED X 4, COMMUNICATES WANTS AND NEEDS. PT ON HER PHONE. TOLERATED PO MEDICATION. LUNG SOUNDS DIMINISHED AT THE BASES. ABD IS ROUND, SOFT AND NONTENDER WITH ACTIVE BOWEL SOUNDS X 4. V/S: 98.4, 92, 18, 136/69, 96% ON 3L NC PAIN 0/10. PT HAS IV ACCESS TO LEFT FOREARM AND RIGHT HAND THAT ARE BOTH INTACT AND PATENT. PT RECEIVING NS AT 100ML/HR TO RIGHT HAND WITH NO ISSUES. SAFETY MEASURES IN PLACE.
[2020-01-16] MEDS: AZITHROMYCIN 250 MG TAB PO SCH (08:31)
[2020-01-16] MEDS: ASCORBIC ACID 500 MG TAB PO SCH (08:31)
[2020-01-16] MEDS: ZINC SULF 220 MG CAP PO SCH (08:31)
[2020-01-16] MEDS: ENOXAPARIN 40 MG/0.4 ML SYR SUBQ SCH (08:34)
[2020-01-16] MEDS: NACL 0.9% 1,000 ML IV SCH (08:35)
[2020-01-16] MEDS ORDERED: MAGNESIUM OXIDE 400 MG TAB PO SCH (10:00)
--- NOTE | 2020-01-16 10:30 | NUR ---
DR. PYLE NOTIFIED OF MG 1.6 ORDERED MAG OX 400 MG I TAB ONCE. ORDER SUBMITTED. IN NO DISTRESS. PLAYING ON HER PHONE.
[2020-01-16 12:00] VITALS: BP 142/74
--- NOTE | 2020-01-16 12:40 | NUR ---
V/S: 97.9, 84, 18, 142/74, 96% WITH 3L NC. PAIN 0/10. PT TOLERATED PO MEDICATION MAG OX 1 TAB WITH NO PROBLEMS. PT SPOKE WITH MD AND DISCHARGE WAS DISCUSSED. RESTING. ALL NEEDS MET. Addendum: 01/16/20 at 1311 by Teresita Flores RN BS [id number] PT RECEIVED 8 UNITS OF HUMALOG PER SLIDING SCALE.
[2020-01-16] MEDS ORDERED: AZIT250T11 PO (13:04)
[2020-01-16] MEDS ORDERED: ZINC220C28 PO (13:04)
[2020-01-16] MEDS ORDERED: DEXA6TAB1 PO (13:04)
[2020-01-16] MEDS ORDERED: VITC500 PO (13:04)
[2020-01-16 13:20] VITALS: BP 149/78
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
--- NOTE | 2020-01-16 15:08 | NUR ---
TRANSPORTATION HERE FOR PICK PT LEFT AT THIS TIME. PT DISCHARGED WITH INSTRUCTIONS AND ALL BELONGINGS. ROOM WAS SCREENED NO BELONGINGS LEFT BEHIND. PT ABLE TO VERBALIZE UNDERSTANDING. IN GOOD SPIRITS PT AMBULATED TO WHEELCHAIR WITH STEADY GAIT. PT VERBAL AND ABLE TO COMMUNICATE EFFECTIVELY ORIENTED X4 PT EDUCATED ON KEEPING MASK ON FOR ENTIRE TRANSPORTATION PROCESS.
== END 2020-01-16 15:05 | DRG 177 ==
LOC: MED 09:09 → MTU 11:13
PROVIDERS: ADMIT Family Medicine; ATTEND Family Medicine
DX: U07.1 COVID-19 (principal); J96.01 Acute respiratory failure with hypoxia; N17.0 Acute kidney failure with tubular necrosis; J12.89 Other viral pneumonia; I69.351 Hemiplegia and hemiparesis following cerebral infarction affecting right dominant side; E87.1 Hypo-osmolality and hyponatremia; N39.0 Urinary tract infection, site not specified; I10 Essential (primary) hypertension; E78.5 Hyperlipidemia, unspecified; E11.40 Type 2 diabetes mellitus with diabetic neuropathy, unspecified; E83.42 Hypomagnesemia; I25.10 Atherosclerotic heart disease of native coronary artery without angina pectoris; Z87.891 Personal history of nicotine dependence; Z95.1 Presence of aortocoronary bypass graft; Z88.0 Allergy status to penicillin; Z79.4 Long term (current) use of insulin; I25.2 Old myocardial infarction; Z95.5 Presence of coronary angioplasty implant and graft; Z83.3 Family history of diabetes mellitus; Z82.49 Family history of ischemic heart disease and other diseases of the circulatory system
CPT/HCPCS: 36415; 36600; 71045; 80048; 80053; 81001; 82150; 82550; 82728; 82803; 82948; 83036; 83605; 83615; 83690; 83735; 83880; 84100; 84439; 84443; 84484; 85025; 85379; 85384; 85610; 85651; 85730; 86140; 87040; 87081; 87086; 87420; 87804; 93005; 94664; 96365; 96375; 97161-GP; 99291; J0456; J0696; J1100; J1650; J2060; J3475; J7030; J7060; Q0092; U0003-CS

== ENCOUNTER 2020-09-19 17:30 | Emergency (ER) | payer OTHER, MEDICAID ==
[~2020-09-19] VITALS: Ht 160 cm; Wt 72.1 kg
[~2020-09-19 17:30] MED LIST changes: +AZIT250T11 PO; +DEXA6TAB1 PO; -ISOS30TE34 PO; +ISOS30TE44 PO; -LISI-420 PO; +LISI-487 PO; +VITC500 PO; +ZINC220C28 PO
--- NOTE | 2020-09-19 17:30 | NUR ---
Patient BIBA ALS, transferred to bed 12. RN evaluating the patient at bedside.
[2020-09-19 17:41] VITALS: BP 112/57
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
--- NOTE | 2020-09-19 18:23 | NUR ---
Dr. He is evaluating the patient at bedside.
[2020-09-19] MEDS ORDERED: ACETAMINOPHEN 325 MG TAB PO ONE (18:25)
[2020-09-19] MEDS ORDERED: ACETAMINOPHEN 325 MG TAB ONE (18:28)
[2020-09-19 18:46] LABS: BASOPHILS % (AUTO) 0.4 % (0.0-2.0); EOSINOPHILS # (AUTO) 0.1 K/uL (0-0.4); EOSINOPHILS % (AUTO) 1.9 % (0.0-4.0); HEMATOCRIT 39.2 % (36-48); HEMOGLOBIN 13.3 g/dL (12.0-16.0); LYMPHOCYTES # (AUTO) 2.3 K/uL (2.5-16.5); LYMPHOCYTES % (AUTO) 31.6 % (20.5-51.1); MEAN CORPUSCULAR HEMOGLOBIN 32 pg (27-31); MEAN CORPUSCULAR HGB CONC 34 g/dL (33-37); MEAN CORPUSCULAR VOLUME 92.7 fL (80-94); MONOCYTES # (AUTO) 0.5 K/uL (0.8-1.0); MONOCYTES % (AUTO) 7.1 % (1.7-9.3); NEUTROPHILS # (AUTO) 4.2 K/uL (1.8-7.7); PLATELET COUNT (AUTO) 148 K/uL (140-450); RED BLOOD CELL COUNT(AUTO) 4.23 MIL/uL (4.20-5.40); RED CELL DISTRIBUTION WIDTH 13.4 % (11.6-13.7); WHITE BLOOD COUNT (AUTO) 7.1 K/uL (4.8-10.8)
[2020-09-19 19:08] LABS: ALBUMIN 3.8 g/dL (3.4-5.0); ANION GAP 15.8 (8-16); CARBON DIOXIDE 24.4 mmol/L (21-32); CREATININE 0.8 mg/dL (0.6-1.3); POTASSIUM 4.2 mmol/L (3.5-5.1); TOTAL BILIRUBIN 0.7 mg/dL (0.0-1.0)
[2020-09-19 19:10] VITALS: BP 121/68
--- NOTE | 2020-09-19 20:31 | NUR ---
currently awaiting taxi.
--- NOTE | 2020-09-19 21:46 | NUR ---
d/c withVSS. d/c education given. opportunity to ask questions given and answered. no r x given.
== END 2020-09-19 21:45 | disposition home or self-care (01) ==
LOC: MED 17:30
DX: R07.9 Chest pain, unspecified (principal); E11.65 Type 2 diabetes mellitus with hyperglycemia; J45.909 Unspecified asthma, uncomplicated; Z86.73 Personal history of transient ischemic attack (TIA), and cerebral infarction without residual deficits; Z88.0 Allergy status to penicillin; Z79.899 Other long term (current) drug therapy
CPT/HCPCS: 36415; 71045; 80053; 83690; 84484; 85025; 93005; 99285

== ENCOUNTER 2021-07-08 12:46 | Emergency (ER) | payer OTHER, MEDICAID ==
[~2021-07-08] VITALS: Ht 157.5 cm; Wt 77.1 kg
[2021-07-08 12:47] VITALS: BP 138/74
--- NOTE | 2021-07-08 12:50 | NUR ---
BIBA TO BED 4.
--- NOTE | 2021-07-08 13:10 | NUR ---
DR HAMLIN AT BEDSIDE EVALUATING PT
--- NOTE | 2021-07-08 13:15 | NUR ---
61/F BIBA FROM [facility] WITH C/O RIGHT SIDED ABOMINAL AND SIDE PAIN X5 DAYS. PATIENT STATES PAIN WORSENS WITH COUGH AND MOVEMENT, DENIES RECENT INJURY/TRAUMA OR HEAVY LIFTING. PATIENT STATES SHE REGURALLY TAKES PAIN MEDS FOR CHRONIC PAIN AND STATES NO RELIEF. PATENT DENIES N/V/D, DYSURIA, FEVER OR CHILLS.
[2021-07-08] MEDS ORDERED: ACETAMINOPHEN EXTRA STRENGTH 500 MG TAB PO ONE (13:20)
[2021-07-08] MEDS ORDERED: MORPHINE SULFATE 4 MG/ML SYR IVP ONE (13:20)
[2021-07-08] MEDS ORDERED: LIDOCAINE 5% 1 EA PATCH TP SCH (13:20)
[2021-07-08] MEDS ORDERED: NACL 0.9% 500 ML IV ONE (14:00)
[2021-07-08 14:19] LABS: BASOPHILS % (AUTO) 0.3 % (0.0-2.0); EOSINOPHILS # (AUTO) 0.1 K/uL (0-0.4); EOSINOPHILS % (AUTO) 1.6 % (0.0-4.0); HEMATOCRIT 40.1 % (36-48); HEMOGLOBIN 13.9 g/dL (12.0-16.0); LYMPHOCYTES # (AUTO) 2.4 K/uL (2.5-16.5); LYMPHOCYTES % (AUTO) 34.2 % (20.5-51.1); MEAN CORPUSCULAR HEMOGLOBIN 31 pg (27-31); MEAN CORPUSCULAR HGB CONC 35 g/dL (33-37); MEAN CORPUSCULAR VOLUME 90.9 fL (80-94); MONOCYTES # (AUTO) 0.4 K/uL (0.8-1.0); MONOCYTES % (AUTO) 5.9 % (1.7-9.3); PLATELET COUNT (AUTO) 122 K/uL (140-450); RED BLOOD CELL COUNT(AUTO) 4.42 MIL/uL (4.20-5.40); RED CELL DISTRIBUTION WIDTH 13.9 % (11.6-13.7)
--- NOTE | 2021-07-08 15:12 | NUR ---
PATIENT DISCONNECTED FROM BEDSIDE MONITOR, AMBULATED WITH STEADY GAIT WITH NURSING STUDENTS ASSISTANCE TO PROVIDE URINE SAMPLE.
[2021-07-08 15:15] LABS: ALBUMIN 3.9 g/dL (3.4-5.0); ANION GAP 11.9 (8-16); ASPARTATE AMINOTRANSFERASE 20 U/L (15-37); CHLORIDE 103 mmol/L (98-107); CREATININE 0.7 mg/dL (0.6-1.3); GFR ARICAN-AMERICAN 110 mL/min (>90); GLUCOSE 135 mg/dL (74-106); LIPASE 88 U/L (73-393); POTASSIUM 3.9 mmol/L (3.5-5.1); SODIUM SERUM 139 mmol/L (136-145); TOTAL BILIRUBIN 1.2 mg/dL (0.0-1.0); UREA NITROGEN, BLOOD 12 mg/dL (7-18)
[2021-07-08 15:16] LABS: SALICYLATE < 2.8 mg/dL (2.8-20.0)
[2021-07-08 15:17] LABS: ACETAMINOPHEN < 0.5 ug/ml (10-30)
--- NOTE | 2021-07-08 15:45 | NUR ---
PATIENT TAKEN TO CT VIA BENJI
--- NOTE | 2021-07-08 16:05 | NUR ---
PT RETURNED FROM CT
[2021-07-08 16:06] LABS: APPEARANCE,URINE SL CLOUDY (CLEAR); BILIRUBIN,URINE NEGATIVE (NEGATIVE); BLOOD, URINE NEGATIVE (NEGATIVE); COLOR,URINE YELLOW (YELLOW); LEUKOCYTE ESTERASE ,URINE TRACE (NEGATIVE); NITRITE, URINE POSITIVE (NEGATIVE); UGLUCOSE NEGATIVE (NEGATIVE)
[2021-07-08 16:40] LABS: RBC,URINE NONE SEEN /HPF (0-5); WBC,URINE 0-5 /HPF (0-5)
[2021-07-08] MEDS ORDERED: NITROFURANTOIN 100 MG CAP PO ONE (17:10)
[2021-07-08] MEDS ORDERED: NITR100C7 PO (17:11)
--- NOTE | 2021-07-08 17:16 | NUR ---
CALLED AND SPOKE WITH PATIENT RADHA CROWLEY AND INFORMED PATIENT IS UP FOR DISCHARGE. INFORMED PATIENT NEEDS A RIDE HOME OR PATIENT CAN BE PLACED INTO TAXI AT PATIENT EXPENSE. INFORMED INSURANCE CANNOT SET UP TRANSPORATION UNTIL TOMORROW. PER SON HE WILL SPEAK WITH MOTHER AND CALL BACK
--- NOTE | 2021-07-08 17:48 | NUR ---
BILATERAL IVS removed, catheter intact and site benign. Applied folded 4x4 gauze and tape to stop bleeding.
[2021-07-08 17:49] VITALS: BP 125/70
--- NOTE | 2021-07-08 17:49 | NUR ---
Patient discharged with v/s stable. Written and verbal after care instructions ABOUT URINARY TRACT INFECT AND CHRONIC BACK PAIN given and explained. Patient alert, oriented and verbalized understanding of instructions. Ambulatory with steady gait. All questions addressed prior to discharge. ID band removed. Patient advised to follow up with PMD. Rx of MACROBID given. Patient educated on indication of medication including possible reaction and side effects. Opportunity to ask questions provided and answered.
[2021-07-08 22:10] LABS: BARBITURATE, URINE NEGATIVE ng/ml (NEG <=200); BENZODIAZEPINE, URINE NEGATIVE ng/mL (NEG <=200); CANNABINOID, URINE NEGATIVE ng/mL (NEG <=50); COCAINE, URINE NEGATIVE ng/mL (NEG <=300); OPIATE, URINE POSITIVE ng/mL (NEG <=2000); PHENCYCLIDINE SCREEN,URINE NEGATIVE ng/mL (NEG <=25)
== END 2021-07-08 17:49 | disposition home or self-care (01) ==
LOC: MED 12:46
DX: N39.0 Urinary tract infection, site not specified (principal); R05.9 Cough, unspecified; R32 Unspecified urinary incontinence; M54.6 Pain in thoracic spine; M54.50 Low back pain, unspecified; J45.909 Unspecified asthma, uncomplicated; E11.9 Type 2 diabetes mellitus without complications; I10 Essential (primary) hypertension; Z86.73 Personal history of transient ischemic attack (TIA), and cerebral infarction without residual deficits; Z98.890 Other specified postprocedural states; Z79.2 Long term (current) use of antibiotics; Z79.899 Other long term (current) drug therapy; Z79.4 Long term (current) use of insulin; Z79.01 Long term (current) use of anticoagulants; Z79.82 Long term (current) use of aspirin; Z88.0 Allergy status to penicillin
CPT/HCPCS: 36415; 70450; 70496; 70498; 74176; 80053; 80305; 81001; 83690; 84484; 85025; 93005; 96374; 99285; G0480; G0482; J2270; J7030; Q9967

== ENCOUNTER 2021-07-11 22:34 | Emergency (ER) | payer OTHER, MEDICAID ==
[~2021-07-11] VITALS: Ht 157.5 cm; Wt 74.8 kg
[2021-07-11 22:34] VITALS: BP 110/60
[~2021-07-11 22:34] MED LIST changes: +NITR100C7 PO
--- NOTE | 2021-07-11 22:34 | NUR ---
TO LOBBY A/W BED VIA [facility]ILIA WITH C/O RT FLANK PAIN
--- NOTE | 2021-07-11 23:05 | NUR ---
PT TAKEN TO ER BED 11 VIA WC
[2021-07-11 23:10] LABS: EOSINOPHILS # (AUTO) 0.1 K/uL (0-0.4); HEMOGLOBIN 12.6 g/dL (12.0-16.0); LYMPHOCYTES # (AUTO) 2.2 K/uL (2.5-16.5); MONOCYTES # (AUTO) 0.5 K/uL (0.8-1.0); RED CELL DISTRIBUTION WIDTH 13.9 % (11.6-13.7); WHITE BLOOD COUNT (AUTO) 6.9 K/uL (4.8-10.8)
[2021-07-11 23:18] LABS: BASOPHILS % (AUTO) 0.5 % (0.0-2.0); HEMATOCRIT 36.3 % (36-48); LYMPHOCYTES % (AUTO) 31.8 % (20.5-51.1); MEAN CORPUSCULAR HEMOGLOBIN 32 pg (27-31); MEAN CORPUSCULAR HGB CONC 35 g/dL (33-37); MEAN CORPUSCULAR VOLUME 91.3 fL (80-94); MONOCYTES % (AUTO) 7.1 % (1.7-9.3); NEUTROPHILS # (AUTO) 4.1 K/uL (1.8-7.7); NEUTROPHILS % (AUTO) 58.6 % (42.2-75.2); PLATELET COUNT (AUTO) 142 K/uL (140-450); RED BLOOD CELL COUNT(AUTO) 3.97 MIL/uL (4.20-5.40)
[2021-07-11] MEDS ORDERED: ONDANSETRON 4 MG/2 ML VIAL IVP ONE (23:20)
[2021-07-11] MEDS ORDERED: MORPHINE SULFATE 4 MG/ML SYR IVP ONE (23:20)
--- NOTE | 2021-07-11 23:27 | NUR ---
61 Y/O FEMALE BIBA FROM [facility], C/O RIGHT FLANK PAIN. PATIENT PRESENTS TO ED WITH TENDERNESS TO RIGHT FLANK AND ABDOMEN. PT STATES IT FEELS LIKE A CONSTANT STABBING PAIN THAT SHE IS NOT ABLE TO TOLERATE ANYMORE. DENIES N/V, +DIARRHEA, NO BLOOD IN URINE; SKIN IS PINK/WARM/DRY; AAOX4 WITH EVEN AND STEADY GAIT; LUNGS CLEAR BL; HR EVEN AND REGULAR; PT DENIES ANY FEVER, CP, SOB, OR COUGH AT THIS TIME; PATIENT STATES PAIN OF 0/10 AT THIS TIME; VSS; PATIENT POSITIONED FOR COMFORT; HOB ELEVATED; BEDRAILS UP X2; BED DOWN. ER MD MADE AWARE OF PT STATUS. PT STATES SHE HAS SOME INCONTINENCE TO URINE FROM HER CVA IN 2019 AND POOR CIRCULATION IN RIGHT LEG. HX: CVA 2019, UTI, DM1, ASTHMA, CAD, ANGINA, HTN, KIDNEY PROBLEMS AND CARDIAC STENT ALL: PCN
[2021-07-11 23:34] LABS: ALBUMIN 3.7 g/dL (3.4-5.0); ANION GAP 12.2 (8-16); CARBON DIOXIDE 24.7 mmol/L (21-32); CREATININE 0.8 mg/dL (0.6-1.3); POTASSIUM 3.9 mmol/L (3.5-5.1); TOTAL BILIRUBIN 0.8 mg/dL (0.0-1.0)
[2021-07-11 23:36] LABS: APPEARANCE,URINE CLEAR (CLEAR); BILIRUBIN,URINE 1+ (NEGATIVE); BLOOD, URINE NEGATIVE (NEGATIVE); COLOR,URINE YELLOW (YELLOW); LEUKOCYTE ESTERASE ,URINE NEGATIVE (NEGATIVE); NITRITE, URINE POSITIVE (NEGATIVE); UGLUCOSE 3+ (NEGATIVE)
[2021-07-11 23:49] LABS: RBC,URINE 0-5 /HPF (0-5); WBC,URINE 0-5 /HPF (0-5)
--- NOTE | 2021-07-12 00:10 | NUR ---
PT TAKEN TO CT
--- NOTE | 2021-07-12 00:29 | NUR ---
PT RETURN FROM CT
[2021-07-12] MEDS ORDERED: MORPHINE SULFATE 4 MG/ML SYR IVP ONE (04:00)
[2021-07-12] MEDS ORDERED: SULF-59 PO (05:23)
[2021-07-12] MEDS ORDERED: DOCU-299 PO (05:23)
[2021-07-12] MEDS ORDERED: DIPH25TA53 PO (05:23)
[2021-07-12] MEDS ORDERED: METO-486 PO (05:23)
--- NOTE | 2021-07-12 05:23 | NUR ---
2 attempts made to contact facility to arrange for transportation home. left message. [phone]
--- NOTE | 2021-07-12 06:15 | NUR ---
2 more attempts were made to contact pt's home facility. no answer.
--- NOTE | 2021-07-12 07:27 | NUR ---
gave transfer of care report to Mona Alarcon RN.
--- NOTE | 2021-07-12 07:47 | NUR ---
SPOKE WITH TONIO FROM [facility] AND WAS INFORMED PATIENT FRIEND JONATHAN WILL BE HERE IN 10MIN TO PICK PATIENT UP
[2021-07-12 07:57] VITALS: BP 101/39
--- NOTE | 2021-07-12 07:58 | NUR ---
Patient discharged with v/s stable. Written and verbal after care instructions given and explained. Patient alert, oriented and verbalized understanding of instructions. Wheel Chair Assisted with to lobby waiting for friend forrest. All questions addressed prior to discharge. ID band removed. Patient advised to follow up with PMD. Rx of BENADRYL, COLACE, REGLAND, AND BACTRIM given. Patient educated on indication of medication including possible reaction and side effects. Opportunity to ask questions provided and answered.
== END 2021-07-12 07:58 | disposition home or self-care (01) ==
LOC: MED 22:34
DX: N39.0 Urinary tract infection, site not specified (principal); K59.00 Constipation, unspecified; J45.909 Unspecified asthma, uncomplicated; E11.9 Type 2 diabetes mellitus without complications; I10 Essential (primary) hypertension; Z88.0 Allergy status to penicillin; Z79.899 Other long term (current) drug therapy; Z79.82 Long term (current) use of aspirin; Z79.4 Long term (current) use of insulin; Z86.73 Personal history of transient ischemic attack (TIA), and cerebral infarction without residual deficits; Z98.890 Other specified postprocedural states; Z95.1 Presence of aortocoronary bypass graft
CPT/HCPCS: 36415; 74177; 80053; 81001; 85025; 87086; 96374; 96375; 96376; 99285; J2270; J2405; Q9967

== ENCOUNTER 2022-07-26 03:30 | Emergency (ER) | payer OTHER, MEDICAID ==
[~2022-07-26] VITALS: Ht 157.5 cm; Wt 89.8 kg
[~2022-07-26 03:30] MED LIST changes: +DIPH25TA53 PO; +DOCU-299 PO; +METF-346 PO; -METF500T PO; +METO-486 PO; +SULF-59 PO
--- NOTE | 2022-07-26 03:35 | NUR ---
PT NAI BLS. TAKEN TO BED 7
--- NOTE | 2022-07-26 03:37 | NUR ---
Dr. Nobles examining patient.
[2022-07-26 03:39] VITALS: BP 134/80
[2022-07-26] MEDS ORDERED: HYDROcodone/APAP 10/325 MG 1 TAB TAB PO ONE (03:45)
--- NOTE | 2022-07-26 03:45 | NUR ---
62 Y/O F presents with 10/10 pain in L arm. pt stated she rolled on her arm while in bed and heard a popping noise. pt is A&Ox4, skin intact, respirations even and unlabored. pt is from [facility]. pt is ambualtory. pmh- diabetes, GERD, insomina allergies- penicillins
--- NOTE | 2022-07-26 04:14 | NUR ---
X-Ray at bedside.
[2022-07-26 04:47] VITALS: BP 142/63
--- NOTE | 2022-07-26 05:57 | NUR ---
Patient discharged with v/s stable. Written and verbal after care instructions given and explained. Patient verbalized understanding. Ambulatory with steady gait. All questions addressed prior to discharge. Advised to follow up with PMD.
== END 2022-07-26 05:57 | disposition home or self-care (01) ==
LOC: MED 03:30
DX: S43.492A Other sprain of left shoulder joint, initial encounter (principal); J45.909 Unspecified asthma, uncomplicated; E11.9 Type 2 diabetes mellitus without complications; I10 Essential (primary) hypertension; Z88.0 Allergy status to penicillin; Z79.899 Other long term (current) drug therapy; Z79.4 Long term (current) use of insulin; Z86.73 Personal history of transient ischemic attack (TIA), and cerebral infarction without residual deficits; Z79.01 Long term (current) use of anticoagulants; W23.0XXA Caught, crushed, jammed, or pinched between moving objects, initial encounter; Y93.89 Activity, other specified; Y92.89 Other specified places as the place of occurrence of the external cause; Y99.8 Other external cause status
CPT/HCPCS: 73030; 73060; 99284; Q0092

== ENCOUNTER 2023-01-30 02:23 | Emergency (ER) | payer OTHER, MEDICAID ==
[~2023-01-30] VITALS: Ht 162.6 cm; Wt 86.2 kg
[2023-01-30 02:23] VITALS: BP 145/80; PULSE 89; RESP 19; TEMP 98.4; O2SAT 97
[2023-01-30 02:39] VITALS: O2SAT 95
[2023-01-30 03:24] LABS: BASOPHILS % (AUTO) 0.6 % (0.0-2.0); EOSINOPHILS # (AUTO) 0.2 K/uL (0-0.4); EOSINOPHILS % (AUTO) 2.3 % (0.0-4.0); HEMATOCRIT 41.1 % (36-48); HEMOGLOBIN 14.1 g/dL (12.0-16.0); LYMPHOCYTES # (AUTO) 2.4 K/uL (2.5-16.5); LYMPHOCYTES % (AUTO) 32.6 % (20.5-51.1); MEAN CORPUSCULAR HEMOGLOBIN 31 pg (27-31); MEAN CORPUSCULAR HGB CONC 34 g/dL (33-37); MEAN CORPUSCULAR VOLUME 91.2 fL (80-94); MONOCYTES # (AUTO) 0.7 K/uL (0.8-1.0); MONOCYTES % (AUTO) 9.8 % (1.7-9.3); NEUTROPHILS % (AUTO) 54.7 % (42.2-75.2); PLATELET COUNT (AUTO) 134 K/uL (140-450); RED BLOOD CELL COUNT(AUTO) 4.51 MIL/uL (4.20-5.40); WHITE BLOOD COUNT (AUTO) 7.3 K/uL (4.8-10.8)
[2023-01-30] MEDS ORDERED: HYDROcodone/APAP 10/325 MG 1 TAB TAB PO ONE (03:30)
[2023-01-30 03:39] LABS: ALBUMIN 3.6 g/dL (3.4-5.0); ANION GAP 11.4 (8-16); CALCIUM 8.8 mg/dL (8.5-10.1); CARBON DIOXIDE 27.2 mmol/L (21-32); POTASSIUM 3.6 mmol/L (3.5-5.1); TOTAL BILIRUBIN 0.9 mg/dL (0.0-1.0); TOTAL PROTEIN, SERUM 7.1 g/dL (6.4-8.2)
[2023-01-30 03:47] LABS: APPEARANCE,URINE CLOUDY (CLEAR); BILIRUBIN,URINE NEGATIVE (NEGATIVE); BLOOD, URINE NEGATIVE (NEGATIVE); COLOR,URINE YELLOW (YELLOW); LEUKOCYTE ESTERASE ,URINE NEGATIVE (NEGATIVE); NITRITE, URINE NEGATIVE (NEGATIVE); PH,URINE 5.5 (5.0-9.0); PROTEIN,URINE 1+ (NEGATIVE); UGLUCOSE NEGATIVE (NEGATIVE); UROBILINOGEN,URINE 0.2 EU/dL (0.2 - 1)
[2023-01-30 05:40] VITALS: TEMP 98.4
[2023-01-30] MEDS ORDERED: INSULIN LANTUS 100 UNITS/ML 10 ML VIAL SUBQ ONE (06:25)
[2023-01-30 07:21] VITALS: O2SAT 96
[2023-01-30 08:25] VITALS: BP 105/56; PULSE 74; RESP 19; O2SAT 97
== END 2023-01-30 02:29 ==
LOC: MED 02:23
DX: R10.12 Left upper quadrant pain (principal); R10.32 Left lower quadrant pain; R19.7 Diarrhea, unspecified; J45.909 Unspecified asthma, uncomplicated; E11.9 Type 2 diabetes mellitus without complications; I10 Essential (primary) hypertension; I25.10 Atherosclerotic heart disease of native coronary artery without angina pectoris; Z86.73 Personal history of transient ischemic attack (TIA), and cerebral infarction without residual deficits; Z79.899 Other long term (current) drug therapy; Z79.2 Long term (current) use of antibiotics; Z79.4 Long term (current) use of insulin; Z79.01 Long term (current) use of anticoagulants; Z79.82 Long term (current) use of aspirin; Z88.0 Allergy status to penicillin
CPT/HCPCS: 36415; 74176; 80053; 81003; 82948; 83690; 85025; 96372; 99285; J1815

== ENCOUNTER 2023-06-30 16:37 | Emergency (ER) | payer OTHER, MEDICAID ==
[~2023-06-30] VITALS: Ht 157.5 cm; Wt 94.8 kg
[2023-06-30 16:47] VITALS: BP 138/78; PULSE 84; RESP 16; TEMP 98.2; O2SAT 99
[2023-06-30] MEDS ORDERED: SULF-58 PO (17:43)
[2023-06-30] MEDS ORDERED: BACI-105 TP (17:43)
[2023-06-30] MEDS: BACITRACIN OINT 500 UNITS/GM PKT TP ONE (17:58)
[2023-06-30 18:39] VITALS: BP 119/66; PULSE 89; RESP 18; O2SAT 98
== END 2023-06-30 18:38 | disposition home or self-care (01) ==
LOC: MED 16:37
DX: S91.311A Laceration without foreign body, right foot, initial encounter (principal); M25.774 Osteophyte, right foot; J06.9 Acute upper respiratory infection, unspecified; I11.9 Hypertensive heart disease without heart failure; J45.909 Unspecified asthma, uncomplicated; E11.9 Type 2 diabetes mellitus without complications; Z79.4 Long term (current) use of insulin; Z79.899 Other long term (current) drug therapy; Z88.0 Allergy status to penicillin; X58.XXXA Exposure to other specified factors, initial encounter; Y93.89 Activity, other specified; Y92.89 Other specified places as the place of occurrence of the external cause; Y99.8 Other external cause status
CPT/HCPCS: 82948; 99283